=== PATIENT | male | born 1995 | race Caucasian/White ===

== ENCOUNTER 2024-09-10 07:20 | Day surgery (SDC) | payer OTHER, SELFPAY ==
[2024-09-10] VITALS (8 sets, daily range): BP systolic 126–148; BP diastolic 75–96; BMI 25.7
[2024-09-10] MEDS: NORMOSOL-R/PLASMALYTE-A 1000 IV (07:22)
[2024-09-10] MEDS: SUBLIMAZE 25 MCG IV (09:31)
[2024-09-10] MEDS: MOTRIN 600 MG PO (10:07)
== END 2024-09-10 10:40 | disposition home or self-care (01) ==
LOC: SDS 07:20
PROVIDERS: ATTENDING PHYSICIAN Specialist
DX: N47.5 Adhesions of prepuce and glans penis (principal); N48.89 Other specified disorders of penis
CPT/HCPCS: 54162

== ENCOUNTER 2025-05-31 19:27 | Inpatient (IN) | payer OTHER, SELFPAY ==
[2025-05-31] VITALS (7 sets, daily range): BP systolic 163–194; BP diastolic 108–147; BMI 24.7; BMI 23.3
[2025-05-31 14:22] LABS: ALT (SGPT) 19 U/L (0-50); AST (SGOT) 20 U/L (17-59); Albumin 5.7 g/dl (3.5-5.0); Alkaline Phosphatase 64 U/L (38-126); Blood Urea Nitrogen 76 mg/dl (9-20); Calcium 10.6 mg/dl (8.4-10.2); Carbon Dioxide 20 mmol/L (22-30); Chloride 108 mmol/L (98-107); Glucose 104 mg/dl (70-99); Potassium 4.4 mmol/L (3.5-5.1); Sodium 143 mmol/L (135-145); Total Protein 9.5 g/dl (6.3-8.2); eGFR 13.51
[2025-05-31 14:34] LABS: Hematocrit 36.1 % (39.0-52.0); Hemoglobin 12.0 g/dL (13.0-18.0); Mean Corp Hgb Conc. 33.2 g/dL (33.0-37.0); Mean Corpuscular Volume 90.3 fL (80.0-94.0); Nucleated Red Blood Cells % 0 % (-); Platelet Count 332 10^3/uL (130-400); Red Cell Dist. Width 12.1 % (11.5-14.5)
--- NOTE | 2025-05-31 15:36 | ED.GENMED ---
History of Present Illness
General
Chief Complaint: Blood Pressure Problem
Source: patient
Time Seen by Provider: 05/31/25 15:02
History of Present Illness
History of Present Illness:
29-year-old male presents to the emergency room after being referred here from an ophthalmology office. Patient went to the electric gas appliances demonstrator because he has been experiencing visual changes. He feels like he has lost his central vision in his left
eye. He also has been having some blurry vision. He was told by the electric gas appliances demonstrator that his blood pressure was quite high and that he had retinal changes suggested of hypertension and 'fluid buildup and small hemorrhages in the veins of the
retina' consistent with hypertension. Patient states he has not been feeling well for the past month or so. He has been having occasional headaches, dyspepsia, nausea in the morning and intermittent diarrhea. He has been taking Advil perhaps once
every couple of days still once every other day. He takes 200 mg at a time. He uses half a tablet of Pepcid for his dyspepsia. He was using a probiotic but stopped using it because it was not working. He denies any regular use of alcohol
drinking perhaps once every couple weeks. He uses a THC gummy once every couple weeks. He uses an occasional melatonin gummy for sleep. He denies taking any other health products or supplements. Patient notes that he had a skin tag or adhesion
removed from his penis about 9 months ago. He was not told that his blood pressure was high at that time. Dad states that high blood pressure runs in the family. Patient does note that he is urinating regularly but does take him some time to get
his stream started. This has been the case for some time cannot remember exactly when it started. His appetite seems to have been normal. He denies any hematuria.
Phy Exam
Physical Exam
Physical Exam:
General: Awake, Alert, Oriented X3. No acute distress.
Vitals: Tensive
Head: Atraumatic
Eyes: Pupils equal, EOMI
Throat: Airway intact, no exudates
Neck: Trachea midline
Lungs: Clear and equal b/l
Heart: Regular rate, no murmurs
Abd: Soft, Nontender, fullness in the suprapubic region question enlarged bladder, no pulsatile mass
Neuro: Nonfocal
Skin: Warm, dry, no rash
Extremities: pulses equal b/l, no edema
Course
Orders/Labs/Results
Orders:
Orders
05/31/25 Breakfast
Regular
05/31/25 13:51
Complete Blood Count/With Diff Urgent
Comprehensive Metabolic Panel Urgent
TSH Reflex To Free T4 Urgent
Comment: ADD ON
05/31/25 15:33
US Kidneys [US Renal Only W/O Bladder] Urgent
Comment:
Reason For Exam: acute renal failure
05/31/25 16:04
Urinalysis Urgent
Date Specimen was Collected: 05/31/25
Time Specimen was Collected: 16:02
Urine Microscopic Urgent
Date Specimen was Collected: 05/31/25
Time Specimen was Collected: 16:02
05/31/25 16:26
Beckford Placement- Treatment ONCE
Reason for insertion: Outlet obstruction
05/31/25 16:41
Lidocaine 2% [Lidocaine Uro-Jet 2%] 1 syringe .ROUTE .[facility]
05/31/25 17:03
Lidocaine 2% [Lidocaine Uro-Jet 2%] 1 syringe TOPICAL NOW STA
05/31/25 18:13
HydrALAZINE [Apresoline] 5 mg IV Q6HPRN PRN
05/31/25 18:15
Add On- LAB Urgent
Tests Added?: TSH w/Reflex
0.45% Sodium Chloride 1000 ml [0.45%NaCl] 1,000 ml Sodium Bicarbonate 75 meq IV 80 mls/hr
05/31/25 19:08
Admit/Transfer Patient As Directed
Co-Sign Provider:
Level of Care: Inpatient admission
Assign to:: Medical/Surgical
Physician / Group: Htay
Diagnosis: QUENTIN, Urinary Retention
Reason for Hospitalization: IVFs
Expected length of stay greater than two midnights?: Yes
ELOS- Estimated Length of Stay in days: 3
I certify the patient meets the requirements for IP care: Yes
PRN Pain Medication Management As Directed
May give lesser potent ordered pain med per pt: Yes
preference::
Protocol:: Medication orders for pain may be administered in a
manner that supports deferring to patient preference
when the pt is:
- Requesting an ordered lesser potent pain medication.
Least to most potent pain medications are defined
as: acetaminophen < NSAID < tramadol < opioids
(morphine, oxycodone, hydromorphone).
- Requesting a lesser dose of the same medication IF
ORDERED.
- Requesting a less intrusive route of administration
if both routes are prescribed by the provider (PO <
IV).
05/31/25 19:09
Code Status As Directed
Resuscitation Status: Full Code
05/31/25 20:36
Acetaminophen [Tylenol] 650 mg PO Q4HPRN PRN
Famotidine [Pepcid] 10 mg PO DAILYPRN PRN acid reflux
05/31/25 20:36
NEPHROLOGY CONSULT Routine
Consulting Provider: Rosanna Guerrero
Was physician already notified: Yes
UROLOGY CONSULT Routine
Consulting Provider: Johnnie Kuo
Was physician already notified: Yes
Activity As Directed
Activity Level: Out of Bed-Early Mobility
With Assistance
Beckford Catheter [Catheter- Indwelling] As Directed
Reason for insertion: Acute Kidney Injury
Discontinue Date/Time: 06/03/25 0600
I&O [Intake/ Output] As Directed
Frequency: q12h
Intake/ Output As Directed
Frequency: Per unit guidelines
Comment: strict intake and output monitoring
Vital Signs As Directed
Frequency: q4h
Weight As Directed
Frequency: Daily
DX Deep Vein Thrombosis Video Routine
06/01/25 06:00
Basic Metabolic Panel IN AM
Complete Blood Count/No Diff IN AM
Abnormal Lab Results
05/31/25 05/31/25
13:51 16:04
RBC 4.00 L 10^6/uL
(4.70-6.10)
Hgb 12.0 L g/dL
(13.0-18.0)
Hct 36.1 L %
(39.0-52.0)
MPV 10.9 H fL
(7.4-10.4)
Chloride 108 H mmol/L
(98-107)
Carbon Dioxide 20 L mmol/L
(22-30)
BUN 76 H mg/dl
(9-20)
Creatinine 5.5 H* mg/dL
(0.7-1.3)
Glucose 104 H mg/dl
(70-99)
Calcium 10.6 H mg/dl
(8.4-10.2)
Total Protein 9.5 H g/dl
(6.3-8.2)
Albumin 5.7 H g/dl
(3.5-5.0)
Urine Occult Blood 1+ A
(Negative)
Ur Leukocyte Esterase 1+ A
(Negative)
Urine WBC 11-15 A /HPF
(0-5)
Urine Bacteria Few A
(Negative)
05/31/25 13:51
05/31/25 13:51
Vital Signs
Initial and Last Documented VS:
Initial Vital Signs
Temp Pulse Resp BP Pulse Ox
98.2 F 103 18 194/147 100
05/31/25 13:27 05/31/25 13:27 05/31/25 13:27 05/31/25 13:27 05/31/25 13:27
Last Documented Vital Signs
Temp Pulse Resp BP Pulse Ox
98.3 F 103 19 174/122 99
05/31/25 21:07 05/31/25 21:27 05/31/25 21:07 05/31/25 21:27 05/31/25 21:07
MDM/Problems Addressed
Differential Diagnosis Includes:
Renal failure from bladder outlet obstruction, renal failure from intrinsic kidney disease, renal failure from uncontrolled hypertension
MDM/Problems Addressed:
Patient presents from ophthalmology office due to retinal changes consistent of uncontrolled hypertension as well as a very high blood pressure in their office. I reviewed patient's old records from his minor skin tag surgery about a month ago.
Blood pressure documented is normal then. There are no labs from that time. Patient relays a history of difficulty voiding and requiring some force to get his urine stream started. He admits to holding his urine for quite a long time before he
does go. Ultrasound shows severe hydronephrosis bilateral kidney as well as hydroureter and a significant postvoid residual. Beckford catheter placed with over a liter of urine obtained. I anticipate renal function will proved with the Beckford
catheter and better urine flow. Nephrology consulted. Will hospitalize the patient for monitoring of his renal function. Patient's blood pressure was in the 160s here in the emergency room. Will defer blood pressure management to the hospitalist.
*Radiology
Radiology exam reviewed: radiology read reviewed
*Pulse Oximetry
SaO2: 100
Oxygen Mode of Delivery: Room air
Patient hypoxic: no
*Charter Boat Operator Interpretation
Rate: normal
Interpretation: normal
Rhythm: sinus
*Critical Care Note
Total Time (30-74mins, 75-104mins- exclusive of procedures): 35 min
comment:
Critical care statement: A total of 35 minutes of critical care time was provided for this patient. This includes management of unstable vital signs, evaluation of the patient at bedside, reviewing the patient's pertinent medical records, discussion
with consultants, review of old EKGs and review of pertinent medical records. This time with separate from time utilized to perform the aforementioned documented procedures
ED Attending Note
-
Portions of this chart may have been created with voice recognition software.� Occasional wrong word or��sound alike� substitutions may have occurred due to the inherent limitations of voice recognition software.
Discharge Plan
Departure
Patient Disposition: Admit
Date of Disposition: 05/31/25
Time of Disposition: 17:11
Admit to: Med/Surg
Presentation/result/management discussed w/ accepting MD/DO: Hospitalist
Condition: Fair
Discharge Problem:
Acute renal failure (ARF), Acute urinary retention
Interventions
Interventions:
*Risk Screen - Suicide Last Done: 05/31/25 13:38
*General Assessment Last Done: 05/31/25 14:31
*Neglect/Abuse Screening Last Done: 05/31/25 13:38
*ED- Fall Risk Assessment Last Done: 05/31/25 14:31
*ED COVID-19 Vaccine History Last Done: 05/31/25 14:31
*Nursing Disposition Last Done: 05/31/25 20:33
ED- Cardiac Assessment Last Done: 05/31/25 14:31
ED- Neurological Assessment Last Done: 05/31/25 14:31
ED- Pulmonary Assessment Last Done: 05/31/25 14:35
Discharge Date and Time
Discharge Date/Time: 05/31/25 20:34
[2025-05-31 16:13] LABS: Urine Character Clear (Clear)
[2025-05-31 16:20] LABS: Urine Squamous Cell 0-2 /LPF (Few)
[2025-05-31 16:21] LABS: Urine Red Blood Cell 0-2 /HPF (0-2)
[2025-05-31] MEDS: LIDOCAINE URO-JET 2% 1 SYRINGE TOPICAL (16:40)
--- NOTE | 2025-05-31 17:19 | W.CON.NEPH ---
Consultation
-
Date/Time Consultation Requested: 05/31/25 1648
Date/Time Consultation Performed: 05/31/25 1730
Requesting Provider: Darrell Alaniz
Performing Provider: Rosanna Livingston
Reason for Consultation: QUENTIN
Medical History
-
Chief Complaint: HTN and vision change
History of Present Illness:
29-year-old male presents to the emergency room after being referred here from an ophthalmology office. Patient went to the coil former because he has been experiencing visual changes for last 4months. He feels like he has lost his central
vision in his left eye. He also has been having some blurry vision. He was told by the coil former that his blood pressure was quite high and that he had retinal changes suggested of hypertension and 'fluid buildup and small hemorrhages in the
veins of the retina' consistent with hypertension. Patient states he has not been feeling well for the past month or so. He has been having occasional headaches, dyspepsia, nausea in the morning and intermittent diarrhea. He has been taking 1
Advil perhaps once every couple of days. He uses half a tablet of Pepcid for his dyspepsia. He was using a probiotic but stopped using it because it was not working, stopped taking protein shakes few months ago. He uses a THC gummy once every
couple weeks, denies any drug abuse. He denies taking any other health products or herbal supplements. Patient notes that he had a skin tag or adhesion removed from his penis about 9 months ago at . He was not told that his blood pressure was
high at that time. Pt had no labs done in many years or seen doctors. Patient does note that he is urinating regularly but does take him some time to get his stream started and lately urine frequency reduced. Symptoms mostly noted since 4-5months.
His appetite seems to have been normal. He denies any hematuria.
He has childhood asthma-resolved now and dose not need meds
He has bilat hearing loss and uses hearing aids. Father with HTN since age of 17. No CKD in family.
Labs noted creatinine of 5.5, BUN 76, bicarbonate 28, potassium 4.4, calcium 10.6, hemoglobin 12. Nephrology consult for QUENTIN.
Past Medical History
elevated BPs
GERD
Childhood asthma
bilat hearing aid for hearing loss
Past Surgical History: Other (Excision of penile adhesion. 2023)
Social History
Tobacco: Non-Smoker
Alcohol: Occasional
Drug: Marijuana (THC gummies-occasional)
Living: With Family
Employment: Employed (works in [employer])
Family History
no CKD
father HTN at age of 17
Family History: Not Pertinent
Allergies / Home Medications
Allergy/AdvReac Type Severity Reaction Status Date / Time
No Known Allergies Allergy Verified 05/31/25 13:35
�Medication �Instructions �Recorded �Confirmed �Type
albuterol sulfate 90 mcg/actuation 2 puff inhalation Q6H PRN 05/31/25 05/31/25 History
aerosol inhaler shortness of breath
famotidine 20 mg tablet (Pepcid) 10 mg PO DAILYPRN PRN acid reflux 05/31/25 05/31/25 History
ibuprofen 200 mg tablet (Advil) 200 mg PO Q6H PRN headache 05/31/25 05/31/25 History
multivitamin 1 tab PO DAILY Supplement 05/31/25 05/31/25 History
omega 9-xvn-ypf-fish oil 60 mg-90 1 cap PO DAILY Supplement 05/31/25 05/31/25 History
mg-500 mg capsule (Fish Oil)
Review of Systems
-
All other systems: Negative unless noted
Physical Exam
Vital Signs
Vital Signs
Temp Pulse Resp BP Pulse Ox
98.2 F 102 17 194/147 100
05/31/25 13:27 05/31/25 15:15 05/31/25 15:15 05/31/25 13:27 05/31/25 15:45
Lab Results
WBC 7.9 10^3/uL (4.8-10.8) 05/31/25 13:51
RBC 4.00 10^6/uL (4.70-6.10) L 05/31/25 13:51
Hgb 12.0 g/dL (13.0-18.0) L 05/31/25 13:51
Hct 36.1 % (39.0-52.0) L 05/31/25 13:51
Plt Count 332 10^3/uL (130-400) 05/31/25 13:51
Sodium 143 mmol/L (135-145) 05/31/25 13:51
Potassium 4.4 mmol/L (3.5-5.1) 05/31/25 13:51
Chloride 108 mmol/L (98-107) H 05/31/25 13:51
Carbon Dioxide 20 mmol/L (22-30) L 05/31/25 13:51
BUN 76 mg/dl (9-20) H 05/31/25 13:51
Creatinine 5.5 mg/dL (0.7-1.3) H* 05/31/25 13:51
eGFR 13.51 05/31/25 13:51
Glucose 104 mg/dl (70-99) H 05/31/25 13:51
Calcium 10.6 mg/dl (8.4-10.2) H 05/31/25 13:51
Albumin 5.7 g/dl (3.5-5.0) H 05/31/25 13:51
Physical Exam
General: Awake, Alert, Oriented, AOx3, No Distress and Nontoxic
HEENT: Anicteric, Conjunctivae Clear, Ear/Nose Intact, Dentition Intact and Facial Symmetry
Respiratory: Clear, Normal Excursion and Nonlabored Respirations
Cardiac: S1/S2, Regular Rate/Rhythm (tachy) and No Edema
Breast: Deferred by me
Abdomen: Soft, Nontender and Nondistended
Genito-urinary: Clear Urine (piña)
Musculoskeletal: No Cyanosis and No Edema
Skin: No Rash
Neuro: Nonfocal/Grossly Intact
Psych: Mood/afflect pleasant, Insight/judgement good and Appropriate
Assessment/Plan
-
IMP:
QUENTIN
Bilat hydronephrosis , JACOBS
HTN urgency /emergency
HTN retinopathy
mild no gap met acidosis
Anemia
Mild hypercalcemia-corrected normal
Childhood asthma
GERD
Plan:
Sent from [facility] for HTN and changes in eye
QUENTIN-likely obstructive with bilat hydro- consulted
UA with mild bld no RBC, pyuria and few bact
expect to see improving BP
use prn hydralazine for SBP>160
Avoiding labetalol with a prior history of asthma
avoid nephrotoxins
no emergent need of HD
ok for gentle IVF 1/2ns with bicarb
reviewed plan in detail with the patient and father at bedside
Discussed with the hospitalist
--- NOTE | 2025-05-31 18:46 | HPS.HSE ---
Addendum entered and electronically signed by Madelin Mckeon PA-C 05/31/25 20:25:
Patient subsequently developed mild hematuria following placement of Beckford catheter. Will changed SC heparin to SCDs for DVT Prophylaxis.
Original Note:
Family Physician
-
Family Physician: Fito Che
Chief Complaint
-
Blurry Vision and Elevated Blood Pressure
History of Present Illness
Patient is a 29 y/o male past medical history of childhood asthma, and GERD who presents with blurry vision and elevated blood pressure. Patient reports over the past few weeks he has been experiencing increased blurry and also experienced a
central vision loss. He was seen by ophthalmology today in the office who noted retina changes suggestive of hypertension. They checked his blood pressure in the office, noted it was very elevated and sent him to the emergency department for
evaluation. BMP upon arrival revealed Cr 5.5 and patient subsequently had renal/bladder ultrasound that showed significant urinary retention and severe bilateral hydronephrosis.
Medical History
Past Medical History
Past Medical History: Reports Other
Additional Past Medical History:
GERD
Childhood Asthma
Bilateral Hearing Loss
Past Surgical History: Reports Other
Additional Past Surgical History:
Excision of Penile Adhesion
Social History
Tobacco: Non-smoker
Alcohol: Occasional (One drink every few weeks)
Drug: Other (Occasional THC gummy Once every few months)
Family History
Family History: Not pertinent
Allergies / Home Medications
Allergies reflects when Allergies were last updated in [facility].
Home Medications with original date entered in [facility]
Allergy/Medication List:
Allergies
Allergy/AdvReac Type Severity Reaction Status Date / Time
No Known Allergies Allergy Verified 05/31/25 13:35
Home Medications
albuterol sulfate 90 mcg/actuation aerosol inhaler 2 puff inhalation Q6H PRN shortness of breath 05/31/25
famotidine 20 mg tablet (Pepcid) 10 mg PO DAILYPRN PRN acid reflux 05/31/25
ibuprofen 200 mg tablet (Advil) 200 mg PO Q6H PRN headache 05/31/25
multivitamin 1 tab PO DAILY Supplement 05/31/25
omega 8-vdq-ibu-fish oil 60 mg-90 mg-500 mg capsule (Fish Oil) 1 cap PO DAILY Supplement 05/31/25
Review of Systems
-
A 12 point ROS was completed and negative except as noted: Yes
Constitutional: Denies Fever or Chills
Respiratory: Denies Cough or Trouble Breathing
Cardiac: Denies Chest Pain or Palpitations
: Reports See HPI
Physical Exam
Vital Signs
Vital Signs
Temp Pulse Resp BP Pulse Ox
98.2 F 102 17 194/147 100
05/31/25 13:27 05/31/25 15:15 05/31/25 15:15 05/31/25 13:27 05/31/25 15:45
Physical Exam
General: Well Developed, Well Nourished and Comfortable
HEENT: Anicteric and Moist mucous membranes
Respiratory: Clear and Non Labored Respirations
Cardiac: S1/S2 and Regular Rhythm
GI: Soft and Non Tender
Rectal: Deferred by Provider
Genito-urinary: Clear Urine and Beckford
Musculoskeletal: No Clubbing, No Cyanosis and No Edema
Skin: Warm and Dry
Neuro: Awake, Alert, Oriented and Nonfocal/grossly intact
Psych: Calm
Laboratory Results
-
05/31/25 13:51
05/31/25 13:51
Laboratory Results
Total Bilirubin 0.6 mg/dl (0.2-1.3) 05/31/25 13:51
AST 20 U/L (17-59) 05/31/25 13:51
ALT 19 U/L (0-50) 05/31/25 13:51
Alkaline Phosphatase 64 U/L (38-126) 05/31/25 13:51
Data Reviewed
-
Lab Data: Labs Reviewed by me
Old Records: Reviewed
Impression/Plan
-
Acute Kidney Injury
-Reviewed with Nephrology
-Beckford catheter placed
-Continue IVFs
-Recheck labs in AM
Hypertensive Emergency with Hypertensive Retinopathy
-Expect BP will improve with placement of Beckford catheter
-Continue Hydralazine PRN
Urinary Retention / Severe Bilateral Hydronephrosis
-Beckford catheter placed in ED
-Consult Urology
DVT proph: SC Heparin
Code Status: Full Code
[2025-05-31] MEDS: APRESOLINE 5 MG IV ×2 (18:47→21:27)
[2025-05-31] MEDS: SODIUM BICARBONATE 1075 MEQ IV (18:53)
--- NOTE | 2025-05-31 19:59 | W.PN.UPDATE ---
Update Note
Progress Note Update
This note serves as an addendum to the H&P by cigarette seller Radha EVANS
HPI
29M Non smoker, HX s/p excision of Prepuce and glans penis enile adhesion ( 09/10/24 - Dr Rocha) , s/p bilateral hearing loss seen at ER
- sent in from [facility] office
- pw progressive blurry vision over past few weeks and elevated BP
- also experienced a central vision loss.
- was seen by ophthalmology today in the office who noted retina changes suggestive of hypertension. T
BMP upon arrival revealed Cr 5.5
Renal/bladder ultrasound that showed significant urinary retention and severe bilateral hydronephrosis.
Relevant VS
Temp Pulse Resp BP Pulse Ox
98.2 F 98 17 183/127 100
05/31/25 13:27 05/31/25 19:00 05/31/25 19:00 05/31/25 19:00 05/31/25 19:00
PE
General: NAD
HEENT: moist mucous membranes
Respiratory: Non Labored Respirations
Cardiac: S1/S2 and Regular Rhythm
GI: Soft and Non Tender
Rectal: Deferred by Provider
Genito-urinary: Clear Urine and Beckford
Musculoskeletal: No Clubbing, No Cyanosis and No Edema
Skin: Warm and Dry
Neuro: Awake, Alert, Oriented and Nonfocal/grossly intact
Psych: Calm
Relevant data�
05/31/25
13:51
WBC 7.9
Hgb 12.0 L
Plt Count 332
Potassium 4.4
Chloride 108 H
Carbon Dioxide 20 L
BUN 76 H
Creatinine 5.5 H*
eGFR 13.51
Calcium 10.6 H
Albumin 5.7 H
TSH (Reflex) Pending
US Renal Only W/O Bladder
- Severe bilateral hydronephrosis.
- Significant distention of the urinary bladder.
- Findings could be secondary to bladder outlet obstruction or a neurogenic bladder.
No prior hospitalist admission:
ASSESSMENT & PLAN
QUENTIN suspect obstructive nephropathy plus intrinsic renal dz
Unclear etiolgy for obstructive etiolgy
Significant acute UR - placed FC at ER drained 1250 cc initally
Albumin corrected NAG MA 10
- agree with HCO3 gtt
- Beckford catheter drainage
- Continue IVFs
- trend BMP daily
- Consulted Nephro and Uro
Subsequent hematuria following FC drainage
- CBI if any passage of clots
- avoid SQH
Hypertensive emergency with Hypertensive Retinopathy
- Expect BP will improve with placement of Beckford catheter
- c/w IV Hydralazine PRN
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
- wear b/l hearing AID
DVT PPX - Compression in place of SQH due to at risk for hematuria with severe bladder distention
Full Code
IP MS
[2025-05-31] MEDS: LOPRESSOR 2.5 MG IV (22:51)
[2025-05-31] MEDS: COMPAZINE 5 MG IV (23:36)
[2025-05-31] MEDS: TYLENOL 1000 MG PO (23:36)
[2025-06-01] VITALS (9 sets, daily range): BP systolic 145–179; BP diastolic 95–136; BMI 23.1
[2025-06-01] MEDS: LOPRESSOR 5 MG IV (03:38)
[2025-06-01 07:53] LABS: Hematocrit 39.7 % (39.0-52.0); Hemoglobin 13.3 g/dL (13.0-18.0); Mean Corp Hgb Conc. 33.5 g/dL (33.0-37.0); Mean Corpuscular Volume 89.8 fL (80.0-94.0); Platelet Count 332 10^3/uL (130-400); Red Cell Dist. Width 12.1 % (11.5-14.5)
--- NOTE | 2025-06-01 08:01 | CONS.URO ---
Consultation
-
Date/Time Consultation Performed: 06/01/2025 0815
Performing Provider: Ayaan
Reason for Consultation: Bladder Outlet Obstruction
Medical History
History of Present Illness
ED note, excerpted: '29-year-old male presents to the emergency room after being referred here from an ophthalmology office. Patient went to the [facility] because he has been experiencing visual changes. He feels like he has lost his central
vision in his left eye. He also has been having some blurry vision. He was told by the [facility] that his blood pressure was quite high and that he had retinal changes suggested of hypertension and 'fluid buildup and small hemorrhages in the
veins of the retina' consistent with hypertension. Patient states he has not been feeling well for the past month or so.
. . . Patient notes that he had a skin tag or adhesion removed from his penis about 9 months ago. He was not told that his blood pressure was high at that time. Dad states that high blood pressure runs in the family. Patient does note that he is
urinating regularly but does take him some time to get his stream started. This has been the case for some time cannot remember exactly when it started. His appetite seems to have been normal. He denies any hematuria.
Beckford placed in ED for 1,450 ml
Past Medical History
Past Medical History: Other (elevated BPs GERD Childhood asthma bilat hearing aid for hearing loss)
Past Surgical History: Urological (excision of penile adhesion, 08/2024)
Social History
Tobacco: Other (THC gummies)
Personal: Single
Living: With Family
Employment: Employed
Allergies/Home Medications
Allergies
Allergy/AdvReac Type Severity Reaction Status Date / Time
No Known Allergies Allergy Verified 05/31/25 13:35
Home Medications
�Medication �Instructions �Recorded �Confirmed �Type
albuterol sulfate 90 mcg/actuation 2 puff inhalation Q6H PRN 05/31/25 05/31/25 History
aerosol inhaler shortness of breath
famotidine 20 mg tablet (Pepcid) 10 mg PO DAILYPRN PRN acid reflux 05/31/25 05/31/25 History
ibuprofen 200 mg tablet (Advil) 200 mg PO Q6H PRN headache 05/31/25 05/31/25 History
multivitamin 1 tab PO DAILY Supplement 05/31/25 05/31/25 History
omega 5-one-yfl-fish oil 60 mg-90 1 cap PO DAILY Supplement 05/31/25 05/31/25 History
mg-500 mg capsule (Fish Oil)
Physical Exam
Vital Signs
Vital Signs
Temp Pulse Resp BP Pulse Ox
98.3 F 79 19 151/114 99
05/31/25 21:07 06/01/25 04:45 05/31/25 21:07 06/01/25 04:45 05/31/25 21:07
Lab / Testing Results
Laboratory Results
06/01/25 07:05
Physical Exam
adult male sitting up in bed, on computer
General: No Apparent Distress and Comfortable
HEENT: Other (hearing aides)
Genito-urinary: Beckford Catheter (draining prakash urine)
Neuro: Awake
Psych: Calm
Assessment / Plan
-
Obstructive Nephropathy due to Bladder Retention of undetermined etiology -- alleviated by placement of Beckford
Rec: keep Beckford for now; evaluation of cause of bladder outlet obstruction after renal function has normalized
Data Reviewed
-
Ultrasound: Image personally visualized and interpreted
Lab Data: Labs Reviewed
Old Records: Reviewed
[2025-06-01 08:31] LABS: Blood Urea Nitrogen 68 mg/dl (9-20); Calcium 9.9 mg/dl (8.4-10.2); Carbon Dioxide 23 mmol/L (22-30); Chloride 107 mmol/L (98-107); Estimated Creatinine Clearance 23 ml/min; Glucose 121 mg/dl (70-99); Potassium 4.5 mmol/L (3.5-5.1); Sodium 141 mmol/L (135-145); eGFR 14.79
--- NOTE | 2025-06-01 08:42 | W.PN.HOSP.TC ---
Today's Communication/Plan
-
Continue monitoring Beckford output
Continue IV fluids
Monitor for any hematuria
Monitoring BMP
Assessment / Plan
Assessment / Plan
Assessment:
29-year-old male with a past medical history of asthma, bilateral hearing aid for hearing loss, GERD came to the ED from his ophthalmology appointment due to increased blood pressure that was found at the ophthalmology office. As per the patient he
had been having vision loss in his left eye for the past 4 weeks and finally got appointment yesterday with Dr. Talbot. He described his symptoms as trouble focusing, and had very distorted lines in his left eye mainly. He says he has also been
having GERD like symptoms for past few months causing him to drink a lot more water to relieve his symptoms. This is causing him to be urinating a lot more as well. In the ED, he was found to have very elevated blood pressures and was started on
IV fluids with sodium bicarb, IV hydralazine as needed and had a renal ultrasound which showed severe bilateral hydronephrosis and significant distention of the urinary bladder most likely secondary to bladder outlet obstruction or neurogenic
bladder.
Plan:
# QUENTIN secondary to bladder outlet obstruction
- Ultrasound showed: Severe bilateral hydronephrosis. Significant distention of the urinary bladder. Findings could be secondary to bladder outlet obstruction or a neurogenic bladder.
- Creatinine has been improving from 5.5 to 5.1
- Continue IV fluids with bicarb
- Continue trending BMP
- Continue Beckford catheter, monitor urinary output and monitor for any hematuria. Has drained around 4 L of urine so far
- Urology consulted, input appreciated
- As per urology, no procedures planned at this time, awaiting improvement of renal function
- Avoid nephrotoxic agents, avoiding labetalol due to prior history of asthma
- Continue as needed hydralazine for systolic blood pressures over 160
# Hypertensive emergency with hypertensive retinopathy
- Blood pressures have been improving following Beckford catheter insertion
- Vision has been improving as well, with improvement of the central left eye john
- Reports no headaches, further vision changes
- Will order urine metanephrine, Urine 5-HIAA, renin, aldosterone
- Start nifedipine 30mg daily
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
- Bilateral hearing aids
DVT prophylaxis: SCDs
Full code
Anticipated Discharge: 24 - 48 hours
Subjective/Interval History
-
Date of Service: June 01, 2025
Patient says that he is feeling a lot better ever since the Beckford catheter was placed. Says that his abdomen is much less distended from before, but he still has some lower mid back pain and has to lie flat on his bed. He says that his vision has
been improving as well since he has been in the hospital. Does not report any fever, chills, nausea or vomiting at this time. Overall is feeling a lot better but still not back to his baseline yet.
Objective Data
-
Labs:
Laboratory Results
06/01/25
07:05
WBC 9.3
Hgb 13.3
Hct 39.7
Plt Count 332
Sodium 141
Potassium 4.5
Chloride 107
Carbon Dioxide 23
BUN 68 H
Creatinine 5.1 H*
Glucose 121 H
Calcium 9.9
Vital Signs:
Vital Signs
Temp Pulse Resp BP Pulse Ox
98.3 F 79 19 151/114 99
05/31/25 21:07 06/01/25 04:45 05/31/25 21:07 06/01/25 04:45 05/31/25 21:07
I&O
05/31/25 06/01/25 06/02/25
06:59 06:59 06:59
Intake Total 480 / 480
Output Total 4350 / 4350
Balance -3870 / -3870
Review of Systems
-
History Source: Patient
Constitutional: Denies Fever, No Appetite, Fatigue or Chills
EENT: Reports Decreased Vision and Hearing Loss (Congenital hearing difficulty)
Respiratory: Reports No Symptoms
Cardiac: Reports No Symptoms
Abdomen/GI: Reports No Symptoms
Genitourinary: Reports Difficulty Voiding
Musculoskeletal: Reports Other (Mid back pain)
Skin: Reports No Symptoms
Neuro: Reports No Symptoms
Endocrine: Reports No Symptoms
Hematologic / Lymphatic: Reports No Symptoms
Allergy / Immunology: Reports No Symptoms
Physical Exam
-
General: Well Developed, Well Nourished and Conversant
HEENT: Normocephalic, Atraumatic and Hearing Impaired
Respiratory: Clear to Auscultation and Non Labored Respirations
Cardiac: Regular Rhythm and S1/S2
GI: Soft, Nontender, Nondistended and Normal Bowel Sounds
Genito-urinary: Beckford (Clear urine and Beckford tube, slight pink tinged urine in the bag)
Musculoskeletal: No Clubbing, No Cyanosis and No Edema
Skin: Warm and Dry
Neuro: Awake, Alert, Oriented, AO x 3 and No Motor Deficits
Psych: Calm
Data Reviewed
-
Ultrasound: Report Reviewed by me, Discussed with Physician and Discussed with Patient
Labs: Labs Reviewed by me, Discussed with Physician and Discussed with Patient
[2025-06-01] MEDS: SODIUM BICARBONATE 1075 MEQ IV (08:51)
[2025-06-01] MEDS: PEPCID 10 MG PO (10:37)
[2025-06-01] MEDS: TRANDATE 10 MG IV ×2 (10:38→16:57)
--- NOTE | 2025-06-01 11:28 | CM ---
Reviewed the chart notes and spoke with the patient and father at the bedside. The patient resides with his parents in a one story home with five steps to enter. The patient reports no DME/VN/SNF. The patient confirmed his pharmacy of choice is
[facility]. continues to be available to patient/family and is monitoring medical plan for needs at discharge.
Plan: Discharge to home when medically stable. No needs anticipated.
[2025-06-01] MEDS: TYLENOL 650 MG PO ×3 (12:12→22:48)
--- NOTE | 2025-06-01 12:39 | W.PN.NEPH.PH ---
Today's Communication / Plan
-
CT of abdomen and pelvis without contra
IV fluids continued
Follow BMP
Add Procardia 30 mg twice
Assessment/Plan
-
IMP:
QUENTIN
Bilat hydronephrosis , JACOBS
HTN urgency /emergency
HTN retinopathy
mild no gap met acidosis
Anemia
Mild hypercalcemia-corrected normal
Childhood asthma
GERD
Plan:
Sent from [facility] for HTN and changes in eye
QUENTIN-likely obstructive with bilat hydro- consulted , creatinine down to 5.1 with urine output in excess of 4 L
Maintain IV fluids in setting of postobstructive diuresis
Obtain noncontrast CT of abdomen and pelvis re: obstructive uropathy
UA with mild bld no RBC, pyuria and few bact
Will add Procardia 30 mg twice daily for better blood pressure control as patient is symptomatic with headache
use prn hydralazine for SBP>160
avoid nephrotoxins
no emergent need of HD
reviewed plan in detail with the patient and father at bedside
Discussed with the hospitalist
Patient has high clinical risk with ongoing renal failure and uncontrolled symptomatic hypertension
-
-
Date of Service: June 01, 2025
CC / HPI / ROS
-
Chief Complaint:
QUENTIN
Uncontrolled hypertension
History of Present Illness:
Creatinine down to 5.1
Blood pressure remains elevated on as needed IV hydralazine
Review of Systems:
Nonoliguric in excess of 4 L with Beckford catheter
Reports headache
No chest pain or shortness of breath
Labs
-
Labs:
WBC 9.3 10^3/uL (4.8-10.8) 06/01/25 07:05
RBC 4.42 10^6/uL (4.70-6.10) L 06/01/25 07:05
Hgb 13.3 g/dL (13.0-18.0) 06/01/25 07:05
Hct 39.7 % (39.0-52.0) 06/01/25 07:05
Plt Count 332 10^3/uL (130-400) 06/01/25 07:05
eGFR 14.79 06/01/25 07:05
Albumin 5.7 g/dl (3.5-5.0) H 05/31/25 13:51
Physical Exam
-
Vital Signs:
Vital Signs
Temp Pulse Resp BP Pulse Ox
98.2 F 92 18 161/121 99
06/01/25 11:50 06/01/25 11:50 06/01/25 11:50 06/01/25 11:50 06/01/25 11:50
Cardiovascular:: Regular rate and rhythm
Respiratory:: Bilateral: CTA
Lung Excursion:: Normal
Abdomen:: Nontender and Soft
Bowel Sounds:: Normal
Extremity Edema:: None: Bilateral:
Beckford Catheter: Yes
[2025-06-01] MEDS: PROCARDIA XL (EXTENDED RELEASE) 30 MG PO ×2 (13:25→19:51)
[2025-06-01 18:48] LABS: Blood Urea Nitrogen 61 mg/dl (9-20); Calcium 9.7 mg/dl (8.4-10.2); Carbon Dioxide 23 mmol/L (22-30); Chloride 103 mmol/L (98-107); Estimated Creatinine Clearance 26 ml/min; Glucose 184 mg/dl (70-99); Potassium 4.3 mmol/L (3.5-5.1); Sodium 138 mmol/L (135-145); eGFR 17.19
[2025-06-01] MEDS: APRESOLINE 5 MG IV (19:18)
[2025-06-02] VITALS (8 sets, daily range): BP systolic 132–178; BP diastolic 96–125; BMI 23.0
[2025-06-02] MEDS: COMPAZINE 5 MG PO (01:48)
[2025-06-02] MEDS: SODIUM BICARBONATE 1075 MEQ IV (01:58)
[2025-06-02] MEDS: SODIUM BICARBONATE IV ×2 (02:23→14:04)
[2025-06-02 07:14] LABS: Blood Urea Nitrogen 53 mg/dl (9-20); Calcium 9.6 mg/dl (8.4-10.2); Carbon Dioxide 28 mmol/L (22-30); Chloride 102 mmol/L (98-107); Estimated Creatinine Clearance 26 ml/min; Glucose 115 mg/dl (70-99); Potassium 4.0 mmol/L (3.5-5.1); Sodium 140 mmol/L (135-145); eGFR 17.66
[2025-06-02 07:28] LABS: Hematocrit 38.8 % (39.0-52.0); Hemoglobin 13.0 g/dL (13.0-18.0); Mean Corp Hgb Conc. 33.5 g/dL (33.0-37.0); Mean Corpuscular Volume 89.6 fL (80.0-94.0); Platelet Count 343 10^3/uL (130-400); Red Cell Dist. Width 12.3 % (11.5-14.5)
[2025-06-02] MEDS: PROCARDIA XL (EXTENDED RELEASE) 30 MG PO (08:35)
[2025-06-02] MEDS: APRESOLINE 5 MG IV (08:36)
--- NOTE | 2025-06-02 08:38 | W.PN.URO.CBU ---
Today's Communication / Plan
-
Rec: keep Beckford for now; evaluation of cause of bladder outlet obstruction after renal function has normalized
Assessment / Plan
-
Obstructive Nephropathy due to Bladder Retention of undetermined etiology -- alleviated by placement of Beckford
Diagnosis
-
Date of Service: June 02, 2025
-
Patient Diagnosis:
Obstructive Nephropathy due to Bladder Retention of undetermined etiology -- alleviated by placement of Beckford
Objective
-
Vital Signs
Temp Pulse Resp BP Pulse Ox
97.9 F 93 20 178/125 100
06/02/25 07:00 06/02/25 07:00 06/02/25 07:00 06/02/25 07:00 06/02/25 07:00
Intake and Output
06/01/25 06/02/25 06/03/25
06:59 06:59 06:59
Intake Total 480 / 480 1920 / 1920
Output Total 4350 / 4350 4200 / 4200
Balance -3870 / -3870 -2280 / -2280
Intake:
Oral fluids 480 / 480 960 / 960
IV fluids (Total) 960 / 960
Output:
Urine, Beckford 3850 / 3850 4200 / 4200
Urine, Voided 500 / 500
Laboratory Results
06/02/25 06:29
06/02/25 06:29
Physical Exam
-
General - well developed, well nourished, no acute distress
Chest - clear bilaterally
Abdomen - soft, non-tender, positive bowel sounds, no CVAT, no incisional pain or distention
Genitalia - normal
Rectal - normal
Skin - warm & dry with no rash
Neuro - AOx3, no motor deficits
Extremities - no clubbing, no cyanosis, no edema
Incision - clean, dry
Dressing - clean, dry, intact
--- NOTE | 2025-06-02 08:47 | W.PN.HOSP.TC ---
Today's Communication/Plan
-
Continue IV fluids
Repeat BMP in afternoon
Continue monitoring blood pressure
Monitor Beckford
Assessment / Plan
Assessment / Plan
Assessment:
29-year-old male with a past medical history of asthma, bilateral hearing aid for hearing loss, GERD came to the ED from his ophthalmology appointment due to increased blood pressure that was found at the ophthalmology office. As per the patient he
had been having vision loss in his left eye for the past 4 weeks and finally got appointment yesterday with Dr. Talbot. He described his symptoms as trouble focusing, and had very distorted lines in his left eye mainly. He says he has also been
having GERD like symptoms for past few months causing him to drink a lot more water to relieve his symptoms. This is causing him to be urinating a lot more as well. In the ED, he was found to have very elevated blood pressures and was started on
IV fluids with sodium bicarb, IV hydralazine as needed and had a renal ultrasound which showed severe bilateral hydronephrosis and significant distention of the urinary bladder most likely secondary to bladder outlet obstruction or neurogenic
bladder. Similar findings were seen on CT scan from yesterday. Kidney function continues to improve but slowly.
Plan:
# QUENTIN secondary to bladder outlet obstruction
- Ultrasound showed: Severe bilateral hydronephrosis. Significant distention of the urinary bladder. Findings could be secondary to bladder outlet obstruction or a neurogenic bladder.
- CT Abdomen/pelvis: Severe left and mild right hydronephrosis. Findings appear similar on the left and improved on the right compared to the recent renal ultrasound from 05/31/2025
- Creatinine has been improving, now down to 4.4
- Nephrology consulted, input appreciated
- Continue IV fluids with bicarb
- Continue trending BMP
- Continue Beckford catheter, monitor urinary output and monitor for any hematuria
- Urology consulted, input appreciated
- As per urology, no procedures planned at this time, awaiting improvement of renal function
# Hypertensive emergency with hypertensive retinopathy
- Blood pressures have been improving following Beckford catheter insertion
- Vision has been improving as well, with improvement of the central left eye john
- Hydralazine and labetalol as needed for SBP>160
- Reports no headaches, and reports his vision has been improving
- Awaiting urine metanephrine, Urine 5-HIAA, renin, aldosterone
- Start nifedipine 30mg twice daily
# Vasovagal episode
- EKG normal
- Most likely due to sudden drop in blood pressure following getting up from his bed
- Continue monitoring and will continue providing IV fluids
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
- Bilateral hearing aids
DVT prophylaxis: SCDs
Full code
Anticipated Discharge: 24 - 48 hours
Subjective/Interval History
-
Date of Service: June 02, 2025
Patient feeling well this morning. Reports no acute concerns at this time. Reports that he did have a incident of dizziness and vasovagal like symptoms yesterday after getting up quickly from his bed. He says that he was a bit diaphoretic
following that as well but it resolved. Head he has some mild gastric reflux last night for which she received 10 mg of Pepcid which resolved the symptoms. Also received Compazine which also helped.
Objective Data
-
Labs:
Laboratory Results
06/02/25
06:29
WBC 9.6
Hgb 13.0
Hct 38.8 L
Plt Count 343
Sodium 140
Potassium 4.0
Chloride 102
Carbon Dioxide 28
BUN 53 H
Creatinine 4.4 H*
Glucose 115 H
Calcium 9.6
Vital Signs:
Vital Signs
Temp Pulse Resp BP Pulse Ox
97.9 F 93 20 178/125 100
06/02/25 07:00 06/02/25 07:00 06/02/25 07:00 06/02/25 07:00 06/02/25 07:00
I&O
06/01/25 06/02/25 06/03/25
06:59 06:59 06:59
Intake Total 480 / 480 1920 / 1920
Output Total 4350 / 4350 4200 / 4200
Balance -3870 / -3870 -2280 / -2280
Review of Systems
-
History Source: Patient
Constitutional: Denies Fever, No Appetite, Fatigue or Chills
EENT: Reports Decreased Vision (Improving from yesterday) and Hearing Loss (Congenital hearing difficulty)
Respiratory: Reports No Symptoms
Cardiac: Reports No Symptoms
Abdomen/GI: Reports GERD and Indigestion
Genitourinary: Reports Difficulty Voiding
Musculoskeletal: Reports Other (Back pain is resolving)
Skin: Reports No Symptoms
Neuro: Reports No Symptoms
Endocrine: Reports No Symptoms
Hematologic / Lymphatic: Reports No Symptoms
Allergy / Immunology: Reports No Symptoms
Physical Exam
-
General: Well Developed, Well Nourished and Conversant
HEENT: Normocephalic, Atraumatic and Hearing Impaired
Respiratory: Clear to Auscultation and Non Labored Respirations
Cardiac: Regular Rhythm and S1/S2
GI: Soft, Nontender, Nondistended and Normal Bowel Sounds
Genito-urinary: Beckford (Clear urine in Beckford tube with some blood clots seen, slight pink tinged urine in the bag)
Musculoskeletal: No Clubbing, No Cyanosis and No Edema
Skin: Warm and Dry
Neuro: Awake, Alert, Oriented, AO x 3 and No Motor Deficits
Psych: Calm
Data Reviewed
-
CT Scan: Report Reviewed by me, Discussed with Physician, Discussed with Nurse and Discussed with Patient
Labs: Labs Reviewed by me, Discussed with Physician, Discussed with Nurse and Discussed with Patient
[2025-06-02] MEDS: COREG 3.125 MG PO ×2 (10:02→20:00)
--- NOTE | 2025-06-02 11:17 | CM ---
Reviewed the chart notes. CM continues to be available to patient/family and is monitoring medical plan for needs at discharge.
Plan: Discharge to home when medically stable. No needs identified at this time.
--- NOTE | 2025-06-02 12:00 | W.PN.NEPH.PH ---
Today's Communication / Plan
-
Follow BMP
Maintain Beckford cath
Procardia adjusted upwards for hypertension control
Half-normal saline continue in setting of postobstructive diuresis
Assessment/Plan
-
IMP:
QUENTIN
Bilat hydronephrosis , JACOBS
HTN urgency /emergency
HTN retinopathy
mild no gap met acidosis
Anemia
Mild hypercalcemia-corrected normal
Childhood asthma
GERD
Plan:
Sent from [facility] for HTN and changes in eye
Creatinine continues to slowly improve down to 4 point
QUENTIN-likely obstructive with bilat hydro- consulted , creatinine down to 5.1 with urine output in excess of 3 L
Maintain IV fluids in setting of postobstructive diuresis 1 more day
Obtained noncontrast CT of abdomen and pelvis re: obstructive uropathy: Notable for bilateral hydro but no other structural abnormality
UA with mild bld no RBC, pyuria and few bact
Will titrate up Procardia to 30 mg in the morning and 60 mg in the evening for better hypertension
use prn hydralazine for SBP>160
avoid nephrotoxins
no emergent need of HD
reviewed plan in detail with the patient and father and patient at bedside
-
-
Date of Service: June 02, 2025
CC / HPI / ROS
-
Chief Complaint:
QUENTIN
Uncontrolled hypertension
History of Present Illness:
Creatinine down to 4.4
Blood pressure remains elevated on as needed IV hydralazine
Review of Systems:
Nonoliguric in excess of 4 L with Beckford catheter
Reports headache
No chest pain or shortness of breath
Labs
-
Labs:
WBC 9.6 10^3/uL (4.8-10.8) 06/02/25 06:29
RBC 4.33 10^6/uL (4.70-6.10) L 06/02/25 06:29
Hgb 13.0 g/dL (13.0-18.0) 06/02/25 06:29
Hct 38.8 % (39.0-52.0) L 06/02/25 06:29
Plt Count 343 10^3/uL (130-400) 06/02/25 06:29
Sodium 140 mmol/L (135-145) 06/02/25 06:29
Potassium 4.0 mmol/L (3.5-5.1) 06/02/25 06:
Chloride 102 mmol/L (98-107) 06/02/25 06:
Carbon Dioxide 28 mmol/L (22-30) 06/02/25 06:29
BUN 53 mg/dl (9-20) H 06/02/25 06:29
Creatinine 4.4 mg/dL (0.7-1.3) H* 06/02/25 06:29
eGFR 17.66 06/02/25 06:29
Glucose 115 mg/dl (70-99) H 06/02/25 06:29
Calcium 9.6 mg/dl (8.4-10.2) 06/02/25 06:29
Albumin 5.7 g/dl (3.5-5.0) H 05/31/25 13:51
Physical Exam
-
Vital Signs:
Vital Signs
Temp Pulse Resp BP Pulse Ox
98.5 F 117 20 132/107 100
06/02/25 11:00 06/02/25 11:00 06/02/25 11:00 06/02/25 11:00 06/02/25 11:00
Cardiovascular:: Regular rate and rhythm
Respiratory:: Bilateral: CTA
Lung Excursion:: Normal
Abdomen:: Nontender and Soft
Bowel Sounds:: Normal
Extremity Edema:: None: Bilateral:
Beckford Catheter: Yes
[2025-06-02] MEDS: 0.45%NACL 1000 IV (13:59)
[2025-06-02] MEDS: PROCARDIA XL (EXTENDED RELEASE) 60 MG PO (18:07)
[2025-06-02] MEDS: TYLENOL 650 MG PO (20:04)
[2025-06-03] MEDS: 0.45%NACL 1000 IV ×2 (02:16→15:28)
[2025-06-03 03:12] VITALS: BP 131/86
[2025-06-03 05:39] VITALS: BMI 23.0
[2025-06-03 07:00] VITALS: BP 164/109
--- NOTE | 2025-06-03 07:44 | W.PN.HOSP.TC ---
Addendum entered and electronically signed by Jones Bradley MD, Resident 06/03/25 16:53:
CDI Request: Hypertensive urgency. Severely elevated BP without associated organ damage. Had headache and changes in vision. Poor renal function more related to bladder obstruction.
Original Note:
Today's Communication/Plan
-
Awaiting labs
Awaiting urology input
Continue monitoring blood pressure, Beckford output
Assessment / Plan
Assessment / Plan
Assessment:
29-year-old male with a past medical history of asthma, bilateral hearing aid for hearing loss, GERD came to the ED from his ophthalmology appointment due to increased blood pressure that was found at the ophthalmology office. As per the patient he
had been having vision loss in his left eye for the past 4 weeks and finally got appointment yesterday with Dr. Talbot. He described his symptoms as trouble focusing, and had very distorted lines in his left eye mainly. He says he has also been
having GERD like symptoms for past few months causing him to drink a lot more water to relieve his symptoms. This is causing him to be urinating a lot more as well. In the ED, he was found to have very elevated blood pressures and was started on
IV fluids with sodium bicarb, IV hydralazine as needed and had a renal ultrasound which showed severe bilateral hydronephrosis and significant distention of the urinary bladder most likely secondary to bladder outlet obstruction or neurogenic
bladder. Similar findings were seen on CT scan from yesterday. Kidney function continues to improve but slowly.
Plan:
# QUENTIN secondary to bladder outlet obstruction
- Ultrasound showed: Severe bilateral hydronephrosis. Significant distention of the urinary bladder. Findings could be secondary to bladder outlet obstruction or a neurogenic bladder.
- CT Abdomen/pelvis: Severe left and mild right hydronephrosis. Findings appear similar on the left and improved on the right compared to the recent renal ultrasound from 05/31/2025
- Creatinine has been improving, awaiting today's labs
- Nephrology consulted, input appreciated
- Continue IV fluids half-normal saline
- Continue trending BMP
- Continue Beckford catheter, monitor urinary output and monitor for any hematuria
- Urology consulted, input appreciated
- As per urology, no procedures planned at this time, awaiting improvement of renal function
# Hypertensive emergency with hypertensive retinopathy
- Blood pressures have been improving following Beckford catheter insertion
- Vision has been improving as well, with improvement of the central left eye john
- Hydralazine and labetalol as needed for SBP>160
- Reports no headaches, and reports his vision has been improving
- Awaiting urine metanephrine, Urine 5-HIAA, renin, aldosterone
- Nifedipine was increased to 60 mg at night, 30 mg in the morning
- Carvedilol added 3.125 mg p.o. twice daily
# Vasovagal episode
- EKG normal
- Most likely due to sudden drop in blood pressure following getting up from his bed
- Continue monitoring and will continue providing IV fluids
- Resolved, no further incidents
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
- Bilateral hearing aids
DVT prophylaxis: SCDs
Full code
Anticipated Discharge: 24 - 48 hours
Subjective/Interval History
-
Date of Service: June 03, 2025
Patient states that he is feeling much better, reports that his headaches have basically gone away, and that his vision has steadily returning. Says that he had an incident of increased heart rate while he was brushing his teeth but it resolved and
did not occur again. Overall, in much better spirits and feeling much better.
Objective Data
-
Labs:
Laboratory Results
06/03/25
06:00
WBC Pending
Hgb Pending
Hct Pending
Plt Count Pending
Sodium Pending
Potassium Pending
Chloride Pending
Carbon Dioxide Pending
BUN Pending
Creatinine Pending
Glucose Pending
Calcium Pending
Vital Signs:
Vital Signs
Temp Pulse Resp BP Pulse Ox
98.3 F 98 16 131/86 98
06/03/25 03:12 06/03/25 03:12 06/03/25 03:12 06/03/25 03:12 06/03/25 03:12
I&O
06/02/25 06/03/25 06/04/25
06:59 06:59 06:59
Intake Total 1920 / 1920 4086 / 4086
Output Total 4200 / 4200 4420 / 4420
Balance -2280 / -2280 -334 / -334
Review of Systems
-
History Source: Patient
Constitutional: Denies Fever, No Appetite, Fatigue or Chills
EENT: Reports Decreased Vision (Improved further) and Hearing Loss (Congenital hearing difficulty)
Respiratory: Reports No Symptoms
Cardiac: Reports No Symptoms
Abdomen/GI: Reports GERD and Indigestion
Genitourinary: Reports No Symptoms
Musculoskeletal: Reports Other (Back pain is resolving)
Skin: Reports No Symptoms
Neuro: Reports No Symptoms
Endocrine: Reports No Symptoms
Hematologic / Lymphatic: Reports No Symptoms
Allergy / Immunology: Reports No Symptoms
Physical Exam
-
General: Well Developed, Well Nourished, No Apparent Distress, Comfortable and Conversant
HEENT: Normocephalic, Atraumatic and Hearing Impaired
Respiratory: Clear to Auscultation and Non Labored Respirations; Negative Wheezes, Rales or Rhonchi
Cardiac: Regular Rhythm and S1/S2
GI: Soft, Nontender, Nondistended and Normal Bowel Sounds
Genito-urinary: Beckford (Clear urine seen)
Musculoskeletal: No Clubbing, No Cyanosis and No Edema
Skin: Warm and Dry
Neuro: Awake, Alert, Oriented, AO x 3 and No Motor Deficits
Psych: Calm
Data Reviewed
-
Labs: Labs Reviewed by me, Discussed with Physician, Discussed with Nurse and Discussed with Patient
[2025-06-03] MEDS: PROCARDIA XL (EXTENDED RELEASE) 30 MG PO (08:35)
[2025-06-03] MEDS: COREG 3.125 MG PO ×2 (08:36→12:06)
[2025-06-03 08:54] LABS: Hematocrit 41.5 % (39.0-52.0); Hemoglobin 13.8 g/dL (13.0-18.0); Mean Corp Hgb Conc. 33.3 g/dL (33.0-37.0); Mean Corpuscular Volume 91.4 fL (80.0-94.0); Platelet Count 378 10^3/uL (130-400); Red Cell Dist. Width 12.2 % (11.5-14.5)
[2025-06-03 08:59] LABS: Blood Urea Nitrogen 52 mg/dl (9-20); Calcium 10.3 mg/dl (8.4-10.2); Carbon Dioxide 30 mmol/L (22-30); Chloride 102 mmol/L (98-107); Estimated Creatinine Clearance 28 ml/min; Glucose 91 mg/dl (70-99); Potassium 4.4 mmol/L (3.5-5.1); Sodium 141 mmol/L (135-145); eGFR 19.22
[2025-06-03 11:32] VITALS: BP 151/105
--- NOTE | 2025-06-03 14:01 | CM ---
Reviewed the chart notes. Patient with piña. CM continues to be available to patient/family and is monitoring medical plan for needs at discharge.
Plan: Discharge plans will depend on the patient's progress. If discharged with piña may benefit from VN otherwise no needs anticipated.
[2025-06-03 15:00] VITALS: BP 158/109
--- NOTE | 2025-06-03 15:25 | PN.CDI ---
CDI
- -
CDI:
Physician Documentation Request
Admit Date: 05/31/25 19:27
Dear Doctor Kirk,
Patient admitted with QUENTIN. Progress notes include a diagnosis of hypertension.
Hospitalist progress notes state both hypertensive urgency and emergency.
Nephrology states 'HTN urgency /emergency'
In an attempt to clarify potentially conflicting documentation , please clarify the acuity of the documented hypertension:
Hypertensive Urgency - B/P is severely elevated (systolic > or = to 180 or diastolic > or = to 110) but there is no associated organ damage. Symptoms may include: headache, shortness of breath, nosebleeds, severe anxiety. Treatment usually consists
of addition to or adjusting of oral medications and does not generally necessitate hospitalization.
Hypertensive Emergency - B/P is severely elevated (systolic > or = to 180 or diastolic > or = to 110) but can occur at lower levels especially in patients who did not previously have high B/P. There is usually associated organ damage. Symptoms may
include: memory loss, LOC, CVA, SC, angina, renal failure, pulmonary edema. Generally requires more aggressive treatment and a hospitalization.
Other (please specify)
Use of terms such as suspected, likely, concern for, or probable (associated with a specific diagnosis that is being evaluated, monitored, or treated as if it exists) are acceptable and can be coded in the inpatient setting, when documented at the
time of discharge.
Thank you,
Raquel Patrick RN, BSN
CDI Specialist
tiger text
Please use your independent medical judgment in providing your response.
--- NOTE | 2025-06-03 16:36 | W.PN.NEPH.PH ---
Today's Communication / Plan
-
see plan
Assessment/Plan
-
IMP:
QUENTIN
Bilat hydronephrosis , JACOBS
HTN urgency /emergency
HTN retinopathy
mild no gap met acidosis
Anemia
Mild hypercalcemia-corrected normal
Childhood asthma
GERD
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
Plan:
Sent from [facility] for HTN and changes in eye
Creatinine continues to slowly improve down to 4.1
QUENTIN-likely obstructive with bilat hydro- follow
given his HTN, renal issue, hearing loss one would think of [place]
would not suggest any biopsy at this time
probably can get genetic testing out pt
Maintain IV fluids in setting of postobstructive diuresis still
Obtained noncontrast CT of abdomen and pelvis re: obstructive uropathy: Notable for bilateral hydro but no other structural abnormality
UA with mild bld no RBC, pyuria and few bact
Will titrate up Procardia to 60mg BID, on coreg per primary, ARR pending
avoid nephrotoxins
reviewed plan in detail with the patient
d/c plan once cr in 3 range and stable BPs
-
-
Date of Service: June 03, 2025
CC / HPI / ROS
-
Chief Complaint:
QUENTIN
Uncontrolled hypertension
History of Present Illness:
Creatinine down to 4.1, remains polyuric, minimal blood
Blood pressure remains elevated -improving slowly
Review of Systems:
Nonoliguric in excess of 4 L with Beckford catheter
Reports no headache
No chest pain or shortness of breath
Labs
-
Labs:
WBC 9.3 10^3/uL (4.8-10.8) 06/03/25 08:13
RBC 4.54 10^6/uL (4.70-6.10) L 06/03/25 08:13
Hgb 13.8 g/dL (13.0-18.0) 06/03/25 08:13
Hct 41.5 % (39.0-52.0) 06/03/25 08:13
Plt Count 378 10^3/uL (130-400) 06/03/25 08:13
Sodium 141 mmol/L (135-145) 06/03/25 08:13
Potassium 4.4 mmol/L (3.5-5.1) 06/03/25 08:13
Chloride 102 mmol/L (98-107) 06/03/25 08:13
Carbon Dioxide 30 mmol/L (22-30) 06/03/25 08:13
BUN 52 mg/dl (9-20) H 06/03/25 08:13
Creatinine 4.1 mg/dL (0.7-1.3) H* 06/03/25 08:13
eGFR 19.22 06/03/25 08:13
Glucose 91 mg/dl (70-99) 06/03/25 08:13
Calcium 10.3 mg/dl (8.4-10.2) H 06/03/25 08:13
Albumin 5.7 g/dl (3.5-5.0) H 05/31/25 13:51
Physical Exam
-
Vital Signs:
Vital Signs
Temp Pulse Resp BP Pulse Ox
99 F 88 20 158/109 98
06/03/25 15:00 06/03/25 15:00 06/03/25 15:00 06/03/25 15:00 06/03/25 15:00
Cardiovascular:: Regular rate and rhythm
Respiratory:: Bilateral: CTA
Lung Excursion:: Normal
Abdomen:: Nontender and Soft
Bowel Sounds:: Normal
Extremity Edema:: None: Bilateral:
Beckford Catheter: Yes
[2025-06-03] MEDS: PROCARDIA XL (EXTENDED RELEASE) 60 MG PO (18:03)
[2025-06-03 19:32] VITALS: BP 144/96
[2025-06-03] MEDS: COREG 6.25 MG PO (19:37)
[2025-06-03 23:41] VITALS: BP 137/86
[2025-06-04] MEDS: 0.45%NACL 1000 IV (03:13)
[2025-06-04 03:42] VITALS: BP 135/91
[2025-06-04 06:00] VITALS: BMI 22.9
[2025-06-04 07:00] VITALS: BP 166/106
[2025-06-04] MEDS: PROCARDIA XL (EXTENDED RELEASE) 60 MG PO ×2 (08:53→17:37)
[2025-06-04] MEDS: COREG 6.25 MG PO ×2 (08:53→21:20)
[2025-06-04 09:03] LABS: Hematocrit 36.3 % (39.0-52.0); Hemoglobin 12.6 g/dL (13.0-18.0); Mean Corp Hgb Conc. 34.7 g/dL (33.0-37.0); Mean Corpuscular Volume 88.3 fL (80.0-94.0); Platelet Count 313 10^3/uL (130-400); Red Cell Dist. Width 12.0 % (11.5-14.5)
[2025-06-04 09:40] LABS: Blood Urea Nitrogen 49 mg/dl (9-20); Calcium 9.9 mg/dl (8.4-10.2); Carbon Dioxide 28 mmol/L (22-30); Chloride 103 mmol/L (98-107); Estimated Creatinine Clearance 32 ml/min; Glucose 91 mg/dl (70-99); Potassium 4.2 mmol/L (3.5-5.1); Sodium 139 mmol/L (135-145); eGFR 22.46
--- NOTE | 2025-06-04 10:38 | W.PN.URO.CBU ---
Today's Communication / Plan
-
extensive d/w pt and father regarding tract/Obstructive Uropathy/Post-obstructive Diuresis
plan: Beckford until renal function plateaus -- he does NOT need to remain an inpatient during protracted period
outpatient urodynamics and cystoscopy AFTER renal function has maximally improved -- pt and father accepting of this plan
Assessment / Plan
-
Obstructive Nephropathy due to Bladder Retention of undetermined etiology -- alleviated by placement of Beckford
Post-obstructive Diuresis -- continuing
Diagnosis
-
Date of Service: June 04, 2025
-
Patient Diagnosis:
Obstructive Nephropathy due to Bladder Retention of undetermined etiology -- alleviated by placement of Beckford
Post-obstructive Diuresis
Subjective
-
comfortable
Objective
-
Vital Signs
Temp Pulse Resp BP Pulse Ox
98.4 F 69 20 166/106 99
06/04/25 07:00 06/04/25 08:53 06/04/25 07:00 06/04/25 08:53 06/04/25 07:00
Intake and Output
06/03/25 06/04/25 06/05/25
06:59 06:59 06:59
Intake Total 4086 / 4086 1620 / 1620
Output Total 4420 / 4420 4725 / 4725
Balance -334 / -334 -3105 / -3105
Intake:
Oral fluids 3460 / 3460 1120 / 1120
IV fluids (Total) 626 / 626 500 / 500
Output:
Urine, Beckford 4420 / 4420 4725 / 4725
Other:
Number of unmeasured liquid
stools
Rectum 2 1
Laboratory Results
06/04/25 08:55
06/04/25 08:55
Physical Exam
-
General - well developed, well nourished, no acute distress
Genitalia - Beckford with prakash urine
Care Review
Data Reviewed
Discussed with: Family
--- NOTE | 2025-06-04 11:15 | W.PN.NEPH.PH ---
Today's Communication / Plan
-
d/c IVF, follow labs
Assessment/Plan
-
IMP:
QUENTIN
Bilat hydronephrosis , JACOBS
HTN urgency /emergency
HTN retinopathy
mild no gap met acidosis
Anemia
Mild hypercalcemia-corrected normal
Childhood asthma
GERD
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
Plan:
Creatinine continues to slowly improve down to 3.6
QUENTIN-likely obstructive with bilat hydro- follow
given his HTN, renal issue, hearing loss one would think of [place]
would not suggest any biopsy at this time
probably can get genetic testing out pt
cont to have polyuria, will hold IVF and monitor
noncontrast CT of abdomen and pelvis re: obstructive uropathy: Notable for bilateral hydro but no other structural abnormality
UA with mild bld no RBC, pyuria and few bact
monitor BPs with adjustment of Procardia to 60mg BID, coreg on 06/03, ARR pending
avoid nephrotoxins
reviewed plan in detail with the patient and father
potential d/c tomorrow if renal function cont to improve
-
-
Date of Service: June 04, 2025
CC / HPI / ROS
-
Chief Complaint:
QUENTIN
Uncontrolled hypertension
History of Present Illness:
Creatinine down to 3.6, remains polyuric
Blood pressure -improving slowly
Review of Systems:
Nonoliguric in excess of 4.7 L with Beckford catheter
feels well
No chest pain or shortness of breath
Labs
-
Labs:
WBC 7.8 10^3/uL (4.8-10.8) 06/04/25 08:55
RBC 4.11 10^6/uL (4.70-6.10) L 06/04/25 08:55
Hgb 12.6 g/dL (13.0-18.0) L 06/04/25 08:55
Hct 36.3 % (39.0-52.0) L 06/04/25 08:55
Plt Count 313 10^3/uL (130-400) 06/04/25 08:55
Sodium 139 mmol/L (135-145) 06/04/25 08:55
Potassium 4.2 mmol/L (3.5-5.1) 06/04/25 08:55
Chloride 103 mmol/L (98-107) 06/04/25 08:55
Carbon Dioxide 28 mmol/L (22-30) 06/04/25 08:55
BUN 49 mg/dl (9-20) H 06/04/25 08:55
Creatinine 3.6 mg/dL (0.7-1.3) H 06/04/25 08:55
eGFR 22.46 06/04/25 08:55
Glucose 91 mg/dl (70-99) 06/04/25 08:55
Calcium 9.9 mg/dl (8.4-10.2) 06/04/25 08:55
Albumin 5.7 g/dl (3.5-5.0) H 05/31/25 13:51
Physical Exam
-
Vital Signs:
Vital Signs
Temp Pulse Resp BP Pulse Ox
98.4 F 69 20 166/106 99
06/04/25 07:00 06/04/25 08:53 06/04/25 07:00 06/04/25 08:53 06/04/25 07:00
Cardiovascular:: Regular rate and rhythm
Respiratory:: Bilateral: CTA
Lung Excursion:: Normal
Abdomen:: Nontender and Soft
Bowel Sounds:: Normal
Extremity Edema:: None: Bilateral:
Beckford Catheter: Yes
[2025-06-04 11:45] VITALS: BP 141/92
--- NOTE | 2025-06-04 12:07 | W.PN.HOSP.TC ---
Today's Communication/Plan
-
Continue monitoring Beckford output
Continue monitoring neurological symptoms
Will be following creatinine
Possible discharge tomorrow home
Assessment / Plan
Assessment / Plan
Assessment:
29-year-old male with a past medical history of asthma, bilateral hearing aid for hearing loss, GERD came to the ED from his ophthalmology appointment due to increased blood pressure that was found at the ophthalmology office. As per the patient he
had been having vision loss in his left eye for the past 4 weeks and finally got appointment yesterday with Dr. Talbot. He described his symptoms as trouble focusing, and had very distorted lines in his left eye mainly. He says he has also been
having GERD like symptoms for past few months causing him to drink a lot more water to relieve his symptoms. This is causing him to be urinating a lot more as well. In the ED, he was found to have very elevated blood pressures and was started on
IV fluids with sodium bicarb, IV hydralazine as needed and had a renal ultrasound which showed severe bilateral hydronephrosis and significant distention of the urinary bladder most likely secondary to bladder outlet obstruction or neurogenic
bladder. Similar findings were seen on CT scan. Kidney function continues to improve but slowly. As per discussion with patient's family, continue monitoring creatinine and as he remains stable without IV fluids, will be able to return home
tomorrow.
Plan:
# QUENTIN secondary to bladder outlet obstruction
- Ultrasound showed: Severe bilateral hydronephrosis. Significant distention of the urinary bladder. Findings could be secondary to bladder outlet obstruction or a neurogenic bladder.
- CT Abdomen/pelvis: Severe left and mild right hydronephrosis. Findings appear similar on the left and improved on the right compared to the recent renal ultrasound from 05/31/2025
- Creatinine has been improving, now down to 3.6
- Nephrology consulted, input appreciated
- Discontinued IV fluids, will see how patient creatinine does without IV fluids
- Continue trending BMP
- Continue Beckford catheter, monitor urinary output and monitor for any hematuria
- Urology consulted, input appreciated
- As per urology, no procedures planned at this time, awaiting improvement of renal function, will be following outpatient
- As per nephrology, patient can follow-up closely with nephro and PCP in the outpatient setting following likely discharge tomorrow with Beckford in place
# Hypertensive emergency with hypertensive retinopathy
- Blood pressures have been improving following Beckford catheter insertion
- Vision has been improving as well, with improvement of the central left eye john
- Hydralazine and labetalol as needed for SBP>160
- Reports no headaches, and reports his vision has been improving
- Awaiting urine metanephrine, Urine 5-HIAA, renin, aldosterone
- Nifedipine was increased to 60 mg twice daily
- Carvedilol added 6.25 mg p.o. twice daily
# Vasovagal episode
- EKG normal
- Most likely due to sudden drop in blood pressure following getting up from his bed
- Continue monitoring and will continue providing IV fluids
- Resolved, no further incidents
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
- Bilateral hearing aids
DVT prophylaxis: SCDs
Full code
Anticipated Discharge: Within 24 hours
Subjective/Interval History
-
Date of Service: June 04, 2025
Patient said that he has been feeling well, reports no change from yesterday. Says that his headaches come and go but have mostly resolved. Vision is resolving, still having difficulty watching screens as they cause headaches. Reports urine
output has been a lot less bit blood-tinged recently. Has been eating okay without any nausea.
Objective Data
-
Labs:
Laboratory Results
06/04/25
08:55
WBC 7.8
Hgb 12.6 L
Hct 36.3 L
Plt Count 313
Sodium 139
Potassium 4.2
Chloride 103
Carbon Dioxide 28
BUN 49 H
Creatinine 3.6 H
Glucose 91
Calcium 9.9
Vital Signs:
Vital Signs
Temp Pulse Resp BP Pulse Ox
97.9 F 79 18 141/92 99
06/04/25 11:45 06/04/25 11:45 06/04/25 11:45 06/04/25 11:45 06/04/25 11:45
I&O
06/03/25 06/04/25 06/05/25
06:59 06:59 06:59
Intake Total 4086 / 4086 1620 / 1620
Output Total 4420 / 4420 4725 / 4725
Balance -334 / -334 -3105 / -3105
Review of Systems
-
History Source: Patient
Constitutional: Denies Fever, No Appetite, Fatigue or Chills
EENT: Reports Decreased Vision (Improving) and Hearing Loss (Congenital hearing difficulty)
Respiratory: Reports No Symptoms
Cardiac: Reports No Symptoms
Abdomen/GI: Reports GERD and Indigestion
Genitourinary: Reports No Symptoms
Musculoskeletal: Reports Other (Back pain is resolving)
Skin: Reports No Symptoms
Neuro: Reports No Symptoms
Endocrine: Reports No Symptoms
Hematologic / Lymphatic: Reports No Symptoms
Allergy / Immunology: Reports No Symptoms
Physical Exam
-
General: Well Developed, Well Nourished, No Apparent Distress, Comfortable and Conversant
HEENT: Normocephalic, Atraumatic and Hearing Impaired
Respiratory: Clear to Auscultation and Non Labored Respirations; Negative Wheezes, Rales or Rhonchi
Cardiac: Regular Rhythm and S1/S2
GI: Soft, Nontender, Nondistended and Normal Bowel Sounds
Genito-urinary: Beckford (Clear urine seen)
Musculoskeletal: No Clubbing, No Cyanosis and No Edema
Skin: Warm and Dry
Neuro: Awake, Alert, Oriented, AO x 3 and No Motor Deficits
Psych: Calm
Data Reviewed
-
Labs: Labs Reviewed by me, Discussed with Physician, Discussed with Nurse and Discussed with Patient
[2025-06-04 15:29] VITALS: BP 159/99
[2025-06-04 17:00] LABS: Renin Activity Results 10.3 ng/mL/hr
[2025-06-04 19:32] VITALS: BP 149/88
[2025-06-04 23:39] VITALS: BP 133/96
[2025-06-05 03:29] VITALS: BP 136/90
[2025-06-05 05:39] VITALS: BMI 22.8
[2025-06-05 07:45] VITALS: BP 144/90
[2025-06-05 07:54] LABS: Hematocrit 37.2 % (39.0-52.0); Hemoglobin 12.6 g/dL (13.0-18.0); Mean Corp Hgb Conc. 33.9 g/dL (33.0-37.0); Mean Corpuscular Volume 88.8 fL (80.0-94.0); Platelet Count 328 10^3/uL (130-400); Red Cell Dist. Width 12.0 % (11.5-14.5)
[2025-06-05 08:02] LABS: ALT (SGPT) 23 U/L (0-50); AST (SGOT) 25 U/L (17-59); Albumin 4.4 g/dl (3.5-5.0); Alkaline Phosphatase 46 U/L (38-126); Blood Urea Nitrogen 51 mg/dl (9-20); Calcium 9.9 mg/dl (8.4-10.2); Carbon Dioxide 28 mmol/L (22-30); Chloride 104 mmol/L (98-107); Estimated Creatinine Clearance 34 ml/min; Glucose 91 mg/dl (70-99); Potassium 4.1 mmol/L (3.5-5.1); Sodium 141 mmol/L (135-145); Total Protein 7.2 g/dl (6.3-8.2); eGFR 24.06
[2025-06-05] MEDS: COREG 6.25 MG PO (08:05)
[2025-06-05] MEDS: PROCARDIA XL (EXTENDED RELEASE) 60 MG PO (08:05)
--- NOTE | 2025-06-05 09:25 | W.PN.HOSP.TC ---
Today's Communication/Plan
-
Discharge home today
Assessment / Plan
Assessment / Plan
Assessment:
29-year-old male with a past medical history of asthma, bilateral hearing aid for hearing loss, GERD came to the ED from his ophthalmology appointment due to increased blood pressure that was found at the ophthalmology office. As per the patient he
had been having vision loss in his left eye for the past 4 weeks and finally got appointment yesterday with Dr. Talbot. He described his symptoms as trouble focusing, and had very distorted lines in his left eye mainly. He says he has also been
having GERD like symptoms for past few months causing him to drink a lot more water to relieve his symptoms. This is causing him to be urinating a lot more as well. In the ED, he was found to have very elevated blood pressures and was started on
IV fluids with sodium bicarb, IV hydralazine as needed and had a renal ultrasound which showed severe bilateral hydronephrosis and significant distention of the urinary bladder most likely secondary to bladder outlet obstruction or neurogenic
bladder. Similar findings were seen on CT scan. Kidney function continues to improve but slowly. As per discussion with patient's family, continue monitoring creatinine and as he remains stable without IV fluids, will be able to return home
tomorrow.
Plan:
# QUENTIN secondary to bladder outlet obstruction
- Ultrasound showed: Severe bilateral hydronephrosis. Significant distention of the urinary bladder. Findings could be secondary to bladder outlet obstruction or a neurogenic bladder.
- CT Abdomen/pelvis: Severe left and mild right hydronephrosis. Findings appear similar on the left and improved on the right compared to the recent renal ultrasound from 05/31/2025
- Creatinine has been improving, now down to 3.4 without IV fluids
- Nephrology consulted, input appreciated
- Continue trending BMP
- Continue Beckford catheter, monitor urinary output and monitor for any hematuria
- Urology consulted, input appreciated
- As per urology, no procedures planned at this time, awaiting improvement of renal function, will be following outpatient. Plan for OP urologic intervention with cystoscopy versus urodynamics
- As per nephrology, patient can follow-up closely with PCP in the outpatient setting following likely discharge tomorrow with Beckford in place. Plan for genetic testing of [id number] for diagnosis of Alport's
# Hypertensive emergency with hypertensive retinopathy
- Blood pressures have been improving following Becfkord catheter insertion
- Vision has been improving as well, with improvement of the central left eye john
- Hydralazine and labetalol as needed for SBP>160
- Reports no headaches, and reports his vision has been improving
- Awaiting urine metanephrine, Urine 5-HIAA
- Renin, aldosterone levels increased
- Nifedipine was increased to 60 mg twice daily
- Carvedilol added 6.25 mg p.o. twice daily
# Vasovagal episode
- EKG normal
- Most likely due to sudden drop in blood pressure following getting up from his bed
- Continue monitoring and will continue providing IV fluids
- Resolved, no further incidents
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
- Bilateral hearing aids
DVT prophylaxis: SCDs
Full code
Anticipated Discharge: Today
Subjective/Interval History
-
Date of Service: June 05, 2025
Patient seen this morning, reported no changing symptoms. Says that his headaches and blurry vision pretty much the same as yesterday. No other changes, no other symptoms, reports no concerns at this time.
Objective Data
-
Labs:
Laboratory Results
06/05/25
06:46
WBC 7.5
Hgb 12.6 L
Hct 37.2 L
Plt Count 328
Sodium 141
Potassium 4.1
Chloride 104
Carbon Dioxide 28
BUN 51 H
Creatinine 3.4 H
Glucose 91
Calcium 9.9
Total Bilirubin 0.6
AST 25
ALT 23
Alkaline Phosphatase 46
Vital Signs:
Vital Signs
Temp Pulse Resp BP Pulse Ox
98.0 F 70 16 144/90 99
06/05/25 07:45 06/05/25 08:05 06/05/25 07:45 06/05/25 08:05 06/05/25 07:45
I&O
06/04/25 06/05/25 06/06/25
06:59 06:59 06:59
Intake Total 1620 / 1620 3500 / 3500
Output Total 4725 / 4725 3950 / 3950
Balance -3105 / -3105 -450 / -450
Review of Systems
-
History Source: Patient
Constitutional: Denies Fever, No Appetite, Fatigue or Chills
EENT: Reports Decreased Vision (Improving) and Hearing Loss (Congenital hearing difficulty)
Respiratory: Reports No Symptoms
Cardiac: Reports No Symptoms
Abdomen/GI: Reports GERD and Indigestion
Genitourinary: Reports No Symptoms
Musculoskeletal: Reports Other (Back pain is resolving)
Skin: Reports No Symptoms
Neuro: Reports No Symptoms
Endocrine: Reports No Symptoms
Hematologic / Lymphatic: Reports No Symptoms
Allergy / Immunology: Reports No Symptoms
Physical Exam
-
General: Well Developed, Well Nourished, No Apparent Distress, Comfortable and Conversant
HEENT: Normocephalic, Atraumatic and Hearing Impaired
Respiratory: Clear to Auscultation and Non Labored Respirations; Negative Wheezes, Rales or Rhonchi
Cardiac: Regular Rhythm and S1/S2
GI: Soft, Nontender, Nondistended and Normal Bowel Sounds
Genito-urinary: Beckford (Clear urine seen in tubing and bag)
Musculoskeletal: No Clubbing, No Cyanosis and No Edema
Skin: Warm and Dry
Neuro: Awake, Alert, Oriented, AO x 3 and No Motor Deficits
Psych: Calm
Data Reviewed
-
Labs: Labs Reviewed by me, Discussed with Physician and Discussed with Patient
[2025-06-05 11:30] VITALS: BP 148/99
--- NOTE | 2025-06-05 12:00 | CM ---
CM following re: discharge planning.
Reviewed pt's chart, met with pt and pt's father at bedside.
According to MD pt is medically stable to be discharged today. Pt is aware, expressed his agreement. pt's father stated he will transport her son home.
Pt expressed his concerns regarding teaching Beckford care and he stated as soon as he knows how to manage Beckford bag he will not have a problem to empty it at home.
RN is aware to teach/train the pt to care and manage Beckford and all necessary cleaning supplies will be given to the pt.
D/C plan: home no needs. Pt is aware of the appointment at Urology office. Father to transport.
--- NOTE | 2025-06-05 12:22 | W.DCSUMMARY ---
Documented by User: Jones Bradley MD, Resident 06/05/25 16:49
Discharge Summary
Discharge Data
Date of Admission: 05/31/25
Date of Discharge: 06/05/25
-
Pending Results: Yes
Additional Pending Results:
Urine 5-HIAA
U 5-HIAA/Creat Ratio
Urine 5-HIAA Interpret
Urine Albumin
(Neg - Trace)
U Metanephrine per Vol
U Metanephrines 24 Hr
U Metanephrine/Creat
U Normetaneph per Vol
U Normetanephrine 24h
U Normetanephrine/Creat
U Metanephrines Interp
Hospital Course
Discharging Physician : Dr. Fer Davis, Dr. Jones Bradley
Disposition : Home
Primary care physician : Dr. Fito Che
Principal Discharge diagnosis :
Acute kidney injury likely due to bladder obstruction
Hypertensive urgency
Mild gross hematuria
Blurry vision
Chronic Discharge diagnosis :
Asthma
GERD
Hospital Course :
29-year-old male with a past medical history of asthma, bilateral hearing aid for hearing loss, GERD came to the ED from his ophthalmology appointment due to increased blood pressure that was found at the ophthalmology office. As per the patient he
had been having vision loss in his left eye for the past 4 weeks and finally got appointment yesterday with Dr. Talbot. He described his symptoms as trouble focusing, and had very distorted lines in his left eye mainly. He says he has also been
having GERD like symptoms for past few months causing him to drink a lot more water to relieve his symptoms. This is causing him to be urinating a lot more as well. In the ED, he was found to have very elevated blood pressures and was started on
IV fluids with sodium bicarb, IV hydralazine as needed and had a renal ultrasound which showed severe bilateral hydronephrosis and significant distention of the urinary bladder most likely secondary to bladder outlet obstruction or neurogenic
bladder. Similar findings were seen on CT scan. Beckford catheter was placed and large amounts of urine were drained throughout his stay. His kidney function continued to improve but slowly on IVF and patient's eyesight improved as well. IVF were
stopped and patient's kidney function continued to improve. As per discussion with patient and his family, patient's kidney function was stable enough for discharge home with Beckford catheter in place. Patient given strict instructions to follow up
with Urology for direct visualization of his bladder in the outpatient setting. Patient should also get CMP/CBC within the week and follow up with his PCP and Nephrology in the outpatient setting. Patient's blood pressure was stabilized with
Carvedilol and Nifedipine which he should continue until seen by his PCP.
Important imaging findings :
Renal Ultrasound:
Severe bilateral hydronephrosis. Significant distention of the urinary bladder. Findings could be secondary to bladder outlet obstruction or a neurogenic bladder.
CT Abd/Pelv w/o IV or Oral Contrast:
Severe left and mild right hydronephrosis. Findings appear similar on the left and improved on the right compared to the recent renal ultrasound from 05/31/2025.
No nephroureterolithiasis.
Placement of a Beckford catheter. Urinary bladder wall thickening. Gas and other complex material in the urinary bladder lumen possibly representing blood products or other debris. Limited evaluation by CT and recommend clinical correlation.
Procedure findings : N/A
Discharge Plan
-
Patient Disposition: Home (Routine Discharge)
Discharge Diagnosis/Procedures: Acute kidney injury likely due to bladder obstruction
Hypertensive urgency
Mild gross hematuria
Blurry vision
Condition: Good
Diet: Regular
Activity: No restrictions
Driving Restrictions: Not until seen by your Dr
Bathing Restrictions: None
Blood Work: Repeat CMP, CBC with your PCP in 5-7 days
Referrals:
Wyatt Wells, [Non-Admitting Privileges, Urology] - in one to two weeks
Referral Note: Can follow up with Dr. Wells at [place] if you want a second opinion
Fito Che MD [Family Provider, Family Practice] - in less than 1 week
Referral Note: Follow up with your primary care provider in less than one week
Sly Rocha Jr., MD [Active, Urology] - in one to two weeks
Referral Note: call to schedule 30-minute appointment during next 2 weeks
When calling, can ask for preferred urologist.
Rosanna Guerrero MD [Active, Nephrology] - in one to two weeks
Referral Note: Follow up with Nephrology in 1-2 weeks
Prescriptions:
New
carvedilol 6.25 mg Tablet
6.25 mg PO BID 30 Days Qty: 60 0RF
nifedipine 60 mg Tablet Extended Release
60 mg PO BID 30 Days Qty: 60 0RF
(DME) CMP and CBC in one week
See Rx Instructions .Route .MEDSUPPLY Qty: 1 0RF
Rx Instructions:
CMP and CBC in one week
Dx.Acute Kidney Injury
Please send results to Dr. Fito Che
Continued
multivitamin Tablet
1 tab PO DAILY
famotidine [Pepcid] 20 mg Tablet
10 mg PO DAILYPRN PRN (Reason: acid reflux)
albuterol sulfate 90 mcg/actuation Hfa Aerosol Inhaler
2 puff INHALATION Q6H PRN (Reason: shortness of breath)
omega 7-gfz-ypo-fish oil [Fish Oil] 60-90-500 mg Capsule
1 cap PO DAILY
Discontinued
ibuprofen [Advil] 200 mg Tablet
200 mg PO Q6H PRN (Reason: headache)
Discharge Orders:
Discharge Patient (As Directed); Ordered 06/05/25
Ordered By: Jones Bradley
Discharge Date and Time
Discharge Date/Time: 06/05/25 13:06
Print Language: [place]

Documented by User: Fer Davis DO 06/05/25 16:56
Discharge Summary
Discharge Data
Date of Admission: 05/31/25
Date of Discharge: 06/05/25
Total time spent discharging patient (in min): 33
Discharge Plan
-
Patient Disposition: Home (Routine Discharge)
Discharge Diagnosis/Procedures: Acute kidney injury likely due to bladder obstruction
Hypertensive urgency
Mild gross hematuria
Blurry vision
Condition: Good
Diet: Regular
Activity: No restrictions
Driving Restrictions: Not until seen by your Dr
Bathing Restrictions: None
Blood Work: Repeat CMP, CBC with your PCP in 5-7 days
Referrals:
Wyatt Wells DO [Non-Admitting Privileges, Urology] - in one to two weeks
Referral Note: Can follow up with Dr. Wells at [place] if you want a second opinion
Fito Che MD [Family Provider, Family Practice] - in less than 1 week
Referral Note: Follow up with your primary care provider in less than one week
Sly Rocha Jr., MD [Active, Urology] - in one to two weeks
Referral Note: call to schedule 30-minute appointment during next 2 weeks
When calling, can ask for preferred urologist.
Rosanna Guerrero MD [Active, Nephrology] - in one to two weeks
Referral Note: Follow up with Nephrology in 1-2 weeks
Prescriptions:
New
carvedilol 6.25 mg Tablet
6.25 mg PO BID 30 Days Qty: 60 0RF
nifedipine 60 mg Tablet Extended Release
60 mg PO BID 30 Days Qty: 60 0RF
(DME) CMP and CBC in one week
See Rx Instructions .Route .MEDSUPPLY Qty: 1 0RF
Rx Instructions:
CMP and CBC in one week
Dx.Acute Kidney Injury
Please send results to Dr. Fito Che
Continued
multivitamin Tablet
1 tab PO DAILY
famotidine [Pepcid] 20 mg Tablet
10 mg PO DAILYPRN PRN (Reason: acid reflux)
albuterol sulfate 90 mcg/actuation Hfa Aerosol Inhaler
2 puff INHALATION Q6H PRN (Reason: shortness of breath)
omega 1-rmb-tvm-fish oil [Fish Oil] 60-90-500 mg Capsule
1 cap PO DAILY
Discontinued
ibuprofen [Advil] 200 mg Tablet
200 mg PO Q6H PRN (Reason: headache)
Discharge Orders:
Discharge Patient (As Directed); Ordered 06/05/25
Ordered By: Jones Bradley
Discharge Date and Time
Discharge Date/Time: 06/05/25 13:06
Print Language: [place]
--- NOTE | 2025-06-05 12:54 | W.PN.NEPH.PH ---
Today's Communication / Plan
-
ok to d/c with current meds
Assessment/Plan
-
IMP:
QUENTIN
Bilat hydronephrosis , JACOBS
HTN urgency /emergency
HTN retinopathy
mild no gap met acidosis
Anemia
Mild hypercalcemia-corrected normal
Childhood asthma
GERD
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
Plan:
Creatinine continues to slowly improve down to 3.4 off IVF
QUENTIN-likely obstructive with bilat hydro- follow
given his HTN, renal issue, hearing loss one would think of [place]
would not suggest any biopsy at this time
probably can get genetic testing out pt
cont to have polyuria,encourage po intake
noncontrast CT of abdomen and pelvis re: obstructive uropathy: Notable for bilateral hydro but no other structural abnormality
UA with mild bld no RBC, pyuria and few bact
monitor BPs with adjustment of Procardia to 60mg BID, coreg on 06/03, Also 70s, renin 10, ratio 7-need to repeat out pt
avoid nephrotoxins
reviewed plan in detail with the patient
ok for d/c, BMP in 3-4days
f/u nephro
-
-
Date of Service: June 05, 2025
CC / HPI / ROS
-
Chief Complaint:
QUENTIN
Uncontrolled hypertension
History of Present Illness:
Creatinine down to 3.4, remains polyuric
Blood pressure -improving slowly
Review of Systems:
feels well
No chest pain or shortness of breath
mild intermittent [place] when reading on phone, vision no change
Labs
-
Labs:
WBC 7.5 10^3/uL (4.8-10.8) 06/05/25 06:46
RBC 4.19 10^6/uL (4.70-6.10) L 06/05/25 06:46
Hgb 12.6 g/dL (13.0-18.0) L 06/05/25 06:46
Hct 37.2 % (39.0-52.0) L 06/05/25 06:46
Plt Count 328 10^3/uL (130-400) 06/05/25 06:46
Sodium 141 mmol/L (135-145) 06/05/25 06:46
Potassium 4.1 mmol/L (3.5-5.1) 06/05/25 06:46
Chloride 104 mmol/L (98-107) 06/05/25 06:46
Carbon Dioxide 28 mmol/L (22-30) 06/05/25 06:46
BUN 51 mg/dl (9-20) H 06/05/25 06:46
Creatinine 3.4 mg/dL (0.7-1.3) H 06/05/25 06:46
eGFR 24.06 06/05/25 06:46
Glucose 91 mg/dl (70-99) 06/05/25 06:46
Calcium 9.9 mg/dl (8.4-10.2) 06/05/25 06:46
Albumin 4.4 g/dl (3.5-5.0) 06/05/25 06:46
Physical Exam
-
Vital Signs:
Vital Signs
Temp Pulse Resp BP Pulse Ox
99.1 F 82 16 148/99 100
06/05/25 11:30 06/05/25 11:30 06/05/25 11:30 06/05/25 11:30 06/05/25 11:30
Cardiovascular:: Regular rate and rhythm
Respiratory:: Bilateral: CTA
Lung Excursion:: Normal
Abdomen:: Nontender and Soft
Bowel Sounds:: Normal
Extremity Edema:: None: Bilateral:
Beckford Catheter: Yes
[2025-06-06 05:09] LABS: 5HIAA, Urine 1.4 mg/L; 5HIAA/Creatinine Ratio 2 mg/gCR (0-14); Creatinine, Urine per Volume 64 mg/dL
[2025-06-06 08:59] LABS: 24 Hour Urine Total Volume Random mL; Creatinine, Urine per Volume 59 mg/dL; Metanephrine, Urine 70 ug/L; Normetanephrine, Urine 106 ug/L; Normetanephrine/Creatinine Rat 180 ug/g CRT (0-400); Urine Collection Length Random hr
== END 2025-06-05 13:06 | disposition home or self-care (01) | DRG 699 ==
LOC: 2 NORTH 19:27
PROVIDERS: Emergency Medicine; Physician Assistant Medical; Specialist; ADMITTING PHYSICIAN Internal Medicine; ATTENDING PHYSICIAN Internal Medicine; CONSULT PHYSICIAN Internal Medicine; CONSULT PHYSICIAN Specialist; EMERGENCY PHYSICIAN Emergency Medicine; FAMILY PHYSICIAN Family Medicine
DX: N32.0 Bladder-neck obstruction (principal); I16.1 Hypertensive emergency; N17.9 Acute kidney failure, unspecified; N13.30 Unspecified hydronephrosis; R31.0 Gross hematuria; J45.909 Unspecified asthma, uncomplicated; K21.9 Gastro-esophageal reflux disease without esophagitis; H35.039 Hypertensive retinopathy, unspecified eye; I10 Essential (primary) hypertension; Z87.09 Personal history of other diseases of the respiratory system; H91.93 Unspecified hearing loss, bilateral; D64.9 Anemia, unspecified; E83.52 Hypercalcemia; H35.00 Unspecified background retinopathy; Z79.899 Other long term (current) drug therapy; Z82.49 Family history of ischemic heart disease and other diseases of the circulatory system; Z97.4 Presence of external hearing-aid
CPT/HCPCS: 51702; 74176; 76775; 80048; 80053; 81003; 81015; 82088; 83497; 83835; 84244; 84443; 85025; 85027; 93005; 96365; 96366; 99291; J7030

== ENCOUNTER → 2025-06-29 14:49 | Outpatient (REF) | payer OTHER, SELFPAY | LOC: HWRAD 14:49 | PROVIDERS: ATTENDING PHYSICIAN Specialist; FAMILY PHYSICIAN Family Medicine | DX: N13.39 Other hydronephrosis (principal) | CPT/HCPCS: 76775 ==

== ENCOUNTER 2025-09-01 23:49 | Emergency (ER) | payer OTHER, SELFPAY ==
[2025-09-01 23:51] VITALS: BP 142/104
[2025-09-02 01:30] VITALS: BMI 22.5
[2025-09-02 01:44] LABS: Urine Character Clear (Clear)
--- NOTE | 2025-09-02 02:02 | ED.GENMED ---
History of Present Illness
General
Chief Complaint: Urinary Symptoms
Source: patient
Exam Limitations: none
Time Seen by Provider: 09/02/25 00:34
Nursing documentation reviewed up to this point in time: agreed with
History of Present Illness
History of Present Illness:
Note:
CHIEF COMPLAINT(S)
Urinary retention and difficulty with self-catheterization.
HISTORY OF PRESENT ILLNESS
The patient is a 30-year-old male who presents with urinary retention and challenges with intermittent self-catheterization due to neurogenic bladder. The patient reports a history of a neurogenic bladder with an unclear etiology. He denies any
prostate enlargement, cancer, or neurological conditions upon recent examinations. A neurology evaluation did not provide further insight into the cause. The patient describes experiencing episodes of chills associated with an urgent need to void,
but states these resolved spontaneously on their own without progression to fever, nausea, or vomiting.
The patient experienced similar abdominal pressure and distension reminiscent of symptoms three months prior, confirming bladder fullness. He attempts intermittent self-catheterization; however, encounters difficulty in properly placing the
catheter, often leading to bending or curling around the bladder-prostate junction. This is a recurring issue, with failed attempts noted even with assistance from medical staff. Currently, a catheter placed by a physician remains the mainstay for
bladder management, changed every four weeks. The patient describes his situation as unresolved and problematic in terms of self-management.
PAST MEDICAL AND SURIGICAL HISTORY
The patient reports a mild to moderate bilateral hearing loss present from and a history of hypertension managed with medication.
CHRONIC MEDICAL CONDITIONS SIGNIFICANTLY AFFECTING CARE
Neurogenic bladder, hypertension, bilateral hearing loss.
SOCIAL DETERMINANTS AFFECTING HEALTH
The patient indicates challenges in managing his condition independently, as proper catheter placement is achieved more effectively by medical assembler than through self-attempt.
MEDICATIONS
The patient is on medication for high blood pressure; specifics not mentioned.
REVIEW OF SYSTEMS
- General: Reports chills associated with urgent need to urinate.
- Gastrointestinal: Abdominal pressure related to full bladder.
- Genitourinary: Neurogenic bladder with persistent urinary retention.
PHYSICAL EXAM
General: Alert, no acute distress.
Skin: Warm, dry.
Head: Normocephalic, atraumatic.
Neck: Supple, trachea midline.
Eye Ears, Nose, Mouth, and Throat: Oral mucosa moist.
Cardiovascular: Normal peripheral perfusion, No edema.
Respiratory: Respirations are non-labored.
Gastrointestinal: Abdomen nondistended.
Back: Normal range of motion, Normal alignment.
Musculoskeletal: Normal ROM, normal strength.
Neurological: Alert and oriented to person, place, time, and situation, No focal neurological deficit observed.
Psychiatric: Cooperative, appropriate mood & affect.
PROBLEM LIST
Acute:
- Urinary retention
Chronic:
- Neurogenic bladder
- Hypertension
- Bilateral hearing loss
PLAN
- The current catheterization method will be maintained, with regular replacement every four weeks.
- Evaluate alternative self-catheterization techniques or devices that may be easier for patient use.
- Follow up with the urologist for ongoing management of the neurogenic bladder.
DIFFERENTIAL DIAGNOSIS
The Differential Diagnosis includes, in no particular order and is not limited to:
- Neurogenic bladder
- Urinary tract infection
- Partial bladder outlet obstruction
- Chronic prostatitis
- Diabetes mellitus with autonomic neuropathy
- Multiple sclerosis
- Spinal cord injury
- Postoperative urinary retention
- Medications causing urinary retention (e.g., anticholinergics)
- Neurodegenerative disorders
Disposition:
SUMMARY OF ENCOUNTER
The patient presented with urinary retention indicated by a residual volume of greater than 800 ml. Following a change of the Beckford catheter, urine flow was restored, and the patient was able to have a bowel movement. The patient is asymptomatic
following these interventions.
DISPOSITION
Discharge.
PLAN
- Continue current catheter management with routine follow-up for catheter changes.
- Maintain regular monitoring for any symptoms of urinary retention or infection.
PATIENT EDUCATION AND COUNSELING
- Instructed the patient on signs of urinary retention and infection, such as fever, cloudy urine, or inability to urinate.
- Advised to maintain hydration and monitor urine output.
FOLLOW-UP INSTRUCTIONS
- Continue follow-up with the primary care provider or urologist for ongoing bladder management.
- Instructed to schedule a timely follow-up visit with urology for catheter management as appropriate.
MEDICAL DECISION MAKING
- Number and Complexity of Problems Addressed: Chronic conditions affecting care include neurogenic bladder and hypertension.
- Risk: Prescription medication management and the management of chronic conditions due to neurogenic bladder and hypertension.
DIAGNOSIS
- Urinary retention, unspecified (ICD-10: R33.8)
- Neurogenic bladder, unspecified (ICD-10: N31.9)
Phy Exam
Physical Exam
Physical Exam:
.
.
Course
Orders/Labs/Results
Orders:
Orders
09/02/25 00:39
Lidocaine 2% [Lidocaine Uro-Jet 2%] 1 syringe .ROUTE .[facility]
09/02/25 01:26
Urinalysis Reflex To Culture Urgent
Date Specimen was Collected: 09/02/25
Time Specimen was Collected: 01:25
Urine Microscopic Reflex Cult Urgent
Urine Culture Urgent
CINDY Source: U
Specimen Description:
Date Specimen was Collected: 09/02/25
Time Specimen was Collected: 01:25
Abnormal Lab Results
09/02/25
01:26
Leukocyte Esterase Rfl 1+ A
(Negative)
Urine Bacteria (Reflex) Few A
(Negative)
Vital Signs
Initial and Last Documented VS:
Initial Vital Signs
Temp Pulse Resp BP Pulse Ox
98.5 F 100 18 142/104 100
09/01/25 23:51 09/01/25 23:51 09/01/25 23:51 09/01/25 23:51 09/01/25 23:51
Last Documented Vital Signs
Temp Pulse Resp BP Pulse Ox
98.5 F 100 18 142/104 100
09/01/25 23:51 09/01/25 23:51 09/01/25 23:51 09/01/25 23:51 09/02/25 02:02
*Pulse Oximetry
SaO2: 100
Oxygen Mode of Delivery: Room air
Patient hypoxic: no
*Critical Care Note
Total Time (30-74mins, 75-104mins- exclusive of procedures): Not Applicable
ED Attending Note
-
Portions of this chart may have been created with voice recognition software.� Occasional wrong word or��sound alike� substitutions may have occurred due to the inherent limitations of voice recognition software.
Discharge Plan
Departure
Patient Disposition: Home (Routine Discharge)
Date of Disposition: 09/02/25
Time of Disposition: 02:02
Patient with high blood pressure during this ER visit?: Yes
Condition: Good
Discharge Problem:
Neurogenic bladder, Acute urinary retention, Malfunction of Beckford catheter
Instructions: How to Care for Your Beckford Catheter, Male, How to care for a urinary catheter
Prescriptions:
No Action
multivitamin Tablet
1 tab PO DAILY
famotidine [Pepcid] 20 mg Tablet
10 mg PO DAILYPRN PRN (Reason: acid reflux)
albuterol sulfate 90 mcg/actuation Hfa Aerosol Inhaler
2 puff INHALATION Q6H PRN (Reason: shortness of breath)
omega 9-zgd-mqy-fish oil [Fish Oil] 60-90-500 mg Capsule
1 cap PO DAILY
carvedilol 6.25 mg Tablet
6.25 mg PO BID 30 Days Qty: 60 0RF
nifedipine 60 mg Tablet Extended Release
60 mg PO BID 30 Days Qty: 60 0RF
(DME) CMP and CBC in one week
See Rx Instructions .Route .MEDSUPPLY Qty: 1 0RF
Rx Instructions:
CMP and CBC in one week
Dx.Acute Kidney Injury
Please send results to Dr. Fito Che
Referrals:
Fito Che MD [Family Provider, Family Practice]
Activity Restrictions/Additional Instructions:
Please follow-up with urology as previously directed.
Thank You for choosing [facility].
It was a pleasure meeting you and taking part in your care. We hope for your continued healing and wellness.
Please read discharge instructions in their entirety. However, they are for general education and may not describe your exact diagnosis at discharge. Information on your ER visit and medical conditions were discussed with you along with appropriate
follow up information...
If indicated, please take your medications as instructed and indicated on discharge paperwork.
Please schedule a follow up appointment as directed. Call to schedule an appointment
Please return to the emergency department with ANY change in, persisting, or worsening of symptoms. If any of your symptoms do not improve, or persist, or become more severe within 6-12 hours, please return to the emergency department for further
care.
Please return to the emergency department if you develop a headache, neck pain/stiffness, fever greater than 100.4F, chest pain, shortness of breath, persistent nausea, vomiting, slurred speech, difficulty walking, numbness/tingling, weakness, signs
of infection or any other symptoms that are worrisome to you.
If you have any questions or concerns please do not hesitate to call the Hospital at .
Interventions
Interventions:
*Risk Screen - Suicide Last Done: 09/01/25 23:51
*General Assessment Last Done: 09/02/25 01:27
*Neglect/Abuse Screening Last Done: 09/02/25 01:27
*ED COVID-19 Vaccine History Last Done: 09/02/25 01:27
*ED Influenza Vaccine History Last Done: 09/02/25 01:27
[facility] Risk Assessment Tool Last Done: 09/02/25 01:27
*Nursing Disposition Last Done: 09/02/25 02:24
ED-Male Genitourinary Assessment Last Done: 09/02/25 01:27
Discharge Date and Time
Discharge Date/Time: 09/02/25 02:24
Print Language: FRISIAN
[2025-09-02 02:03] LABS: Urine Red Blood Cell 0-2 /HPF (0-2); Urine Squamous Cell 0-2 /LPF (Few)
== END 2025-09-02 02:24 | disposition home or self-care (01) ==
LOC: EMR 23:49
PROVIDERS: EMERGENCY PHYSICIAN Student in an Organized Health Care Education/Training Program; FAMILY PHYSICIAN Family Medicine
DX: N31.9 Neuromuscular dysfunction of bladder, unspecified (principal); T83.091A Other mechanical complication of indwelling urethral catheter, initial encounter; Y73.8 Miscellaneous gastroenterology and urology devices associated with adverse incidents, not elsewhere classified; R03.0 Elevated blood-pressure reading, without diagnosis of hypertension; I10 Essential (primary) hypertension
CPT/HCPCS: 99283; 51702; 81003; 81015; 87086